=== PATIENT | male | born 1945 | race Caucasian/White ===

== ENCOUNTER 2016-11-03 06:26 | Day surgery (SDC) | payer MEDICARE, OTHER ==
[2016-11-03] MEDS ORDERED: Bupivacaine 0.25% 10 ML SDV ONE (06:58)
[2016-11-03] MEDS ORDERED: Lactated Ringers 1,000 ML IV SCH (07:00)
[2016-11-03] MEDS ORDERED: ceFAZolin 2 GM in Sodium Chloride 0.9% 50 ML IV ONE (07:30)
[2016-11-03] MEDS ORDERED: ceFAZolin 2 GM in Sodium Chloride 0.9% 100 ML IV ONE (07:30)
[2016-11-03] MEDS ORDERED: Propofol 200 MG/20 ML SDV ONE (07:36)
[2016-11-03] MEDS ORDERED: fentaNYL 100 MCG/2 ML SDV ONE (07:36)
[2016-11-03 09:05] VITALS: BP 120/64
--- NOTE | 2016-11-04 07:56 | OR ---
DATE OF PROCEDURE: 11/03/2016 PREOPERATIVE DIAGNOSIS: Right major trigger finger. POSTOPERATIVE DIAGNOSIS: Right major trigger finger. INTERVENTION: Release of A1 radha, right major finger. BLOOD LOSS: Minimal. COMPLICATIONS: No complications. INDICATIONS: Gui is a healthy 71 years old, who works a lot with his hand had a mid shaft ulnar fracture in June of his right forearm, did well, but he has been having some significant catching of his right middle finger. He had an injection and had complete relief at that time. However, the pain symptoms has reoccurred now, which is worse and triggering, he has to unlock it daily. Since he is quite active, we decided to proceed with surgery. I discussed with the patient the possible risks, benefits, alternatives, and complications of surgery. The nature of the procedure was explained. Possible complications include, but not exclusive to infection, phlebitis, nerve damage, vascular damage, possible re-triggering, persistent pain, stiffness, weakness, pulmonary emboli, stroke, transfusion , heart attack, medical complication, possible and I did explained the rehabilitation program. All questions were answered and I had informed consent. PROCEDURE IN DETAIL: The patient was taken to the OR. I did my markings in the right middle finger and he did receive antibiotics preop. The [employer] proceeded with some slight IV sedation, and tourniquet was applied to the right upper extremity in proximity. Sterile prep and dressing in the usual manner of the right hand. Time-out was taken to identify the correct surgical site. I did a local block Marcaine 0.25 plain subcutaneous tissue down to the A1 radha of his right middle finger. The arm was elevated, tourniquet was raised to 250 mmHg. A transverse incision was done at the A1 radha, at the base of his palmar, at the base of his right middle finger about a centimeter. The dissection was carried down to the radha making sure that I stay in the central portion to avoid any neurovascular bundle, this was very thick. He had slight fraying of the flexor tendon, which was slightly debrided with a scalpel. The radha was excised on either side, tendon was quite deconditioned rather in nature. After this was done, I had good gliding and the tendon without any triggering for the whole dressing was applied. Tourniquet was released. Blood loss was minimal. There was no complication. The patient tolerated well the operation. He was sent to recovery room in good condition. Russell Chance MD /[id number]
== END 2016-11-03 09:34 | disposition home or self-care (01) ==
LOC: JP.SDS 06:26
PROVIDERS: ATTEND Orthopaedic Surgery
PROC: 0LN70ZZ Release Right Hand Tendon, Open Approach (ICD-10-PCS; principal; 2016-11-03)
DX: M65.331 Trigger finger, right middle finger (principal); Z85.038 Personal history of other malignant neoplasm of large intestine; I25.10 Atherosclerotic heart disease of native coronary artery without angina pectoris; J45.909 Unspecified asthma, uncomplicated; I10 Essential (primary) hypertension; Z79.82 Long term (current) use of aspirin; Z79.899 Other long term (current) drug therapy; Z91.048 Other nonmedicinal substance allergy status; Z87.891 Personal history of nicotine dependence; K21.9 Gastro-esophageal reflux disease without esophagitis
CPT/HCPCS: 26055; J0690; J2704; J3010; J7050; J7120

== ENCOUNTER 2016-11-27 12:09 | Inpatient (IN) | payer MEDICARE, OTHER ==
[2016-11-27] MEDS ORDERED: Ondansetron 4 MG/2 ML SDV IVPUSH ONE (12:54)
[2016-11-27] MEDS ORDERED: HYDROmorphone 0.5 MG/0.5 ML Syringe IVPUSH ONE (12:58)
--- NOTE | 2016-11-27 12:58 | EDM.PDOC ---
ED HPI GI/ABDOMINAL - General Chief Complaint: Abdominal Pain Stated Complaint: FLU??FROM CLINIC Time Seen by Provider: 11/27/16 12:56 Source: Reports: Patient, Family History Limitations: Reports: No limitations - History of Present Illness INITIAL COMMENTS - FREE TEXT/NARRATIVE: pt has been constipated for the past 3 days. He has been vomiting. He has a past history of colon Ca about 7 years ago. Timing/Duration: Reports: Day(s):, Getting worse Location: other (accross lower abdoman.) Quality: Reports: cramping Severity: moderate Associated Symptoms: Reports: constipation, nausea/vomiting - Related Data Allergies/ADRs: Allergies Allergy/AdvReac Type Severity Reaction Status Date / Time atorvastatin Allergy Muscle Verified 11/27/16 12:31 Aches ciprofloxacin [From Cipro] Allergy Other Verified 11/27/16 12:31 Home Meds: Home Meds Aspirin [Adult Low Dose Aspirin EC] 81 mg PO DAILY 05/24/14 [History] Multivitamin [Multi-Vitamin Daily] 1 each PO DAILY 11/02/16 [History] Past Medical History HEENT History: Reports: Impaired vision Cardiovascular History: Reports: Heart murmur, Heart valve replacement Respiratory History: Reports: Asthma Genitourinary History: Reports: Other (see below) Other Genitourinary History: prostate infections "every now and then" Musculoskeletal History: Reports: Fracture, Other (see below) Other Musculoskeletal History: right arm fracture Psychiatric History: Reports: Depression Oncologic (Cancer) History: Reports: Other (see below) Other Oncologic History: rectal cancer - Infectious Disease History Infectious Disease History: Reports: Chicken pox, Measles, Mumps - Past Surgical History HEENT Surgical History: Reports: None Cardiovascular Surgical History: Reports: Valve replacement Respiratory Surgical History: Reports: None GI Surgical History: Reports: Colonoscopy, Other (see below) Other GI Surgeries/Procedures: history of rectal cancer, part of rectum removed Musculoskeletal Surgical History: Reports: Other (see below) Other Musculoskeletal Surgeries/Procedures:: trigger finger fixed r middle finger. Oncologic Surgical History: Reports: Other (see below) Other Oncologic Surgeries/Procedures: rectal colon surgery with colostomy. Reanastomosis aprox 6 years ago. Social & Family History - Family History Family Medical History: Noncontributory - Tobacco Use Smoking Status *Q: Never Smoker Used Tobacco, but Quit: No Second Hand Smoke Exposure: No - Caffeine Use Caffeine Use: Reports: Coffee, Soda - Recreational Drug Use Recreational Drug Use: No ED ROS GENERAL - Review of Systems Review Of Systems: See Below Constitutional: Reports: weakness, fatigue HEENT: Reports: No symptoms Respiratory: Reports: No Symptoms Cardiovascular: Reports: No symptoms Endocrine: Reports: no symptoms GI/Abdominal: Reports: Constipation, Decreased appetite, Nausea, Vomiting : Reports: no symptoms Musculoskeletal: Reports: no symptoms Skin: Reports: no symptoms ED EXAM, GI/ABD - Physical Exam Exam: See Below Text/Narrative:: pt arrived with lower abdomanl pain. He has been more constipated. He felt distended today and did not have a stool and did not pass gas. He was quite uncomfortable when he arrived. Exam Limited By: No limitations General Appearance: alert, anxious, moderate distress Eyes: bilateral: normal appearance, EOMI Ears: normal TMs Nose: normal inspection Throat/Mouth: Normal inspection Head: atraumatic Neck: normal inspection Respiratory/Chest: no respiratory distress Cardiovascular: regular rate, rhythm GI/Abdominal: tenderness, distention, other ( Pt ) (Male) Exam: Deferred Rectal (Males) Exam: Deferred Back Exam: normal inspection Extremities: normal inspection Course - Vital Signs Last Recorded V/S: Last Vital Signs Temp 37.6 C 11/29/16 02:39 Pulse 65 11/29/16 02:39 Resp 14 11/29/16 02:39 BP 127/64 11/29/16 02:39 Pulse Ox 93 L 11/29/16 02:39 - Orders/Labs/Meds Orders: Active Orders 24 hr Category Date Time Status Gastrointestinal Tube Mgmt [RC] ASDIRECTED Care 11/28/16 12:23 Active NPO Now [Nothing per Oral Now Diet] [DIET] Diet 11/28/16 Lunch Active Abdomen 2V AP Flat Upright [CR] DAILY Exams 11/29/16 05:00 Taken Abdomen 2V AP Flat Upright [CR] DAILY Exams 11/30/16 05:00 Ordered Abdomen 2V AP Flat Upright [CR] Routine Exams 11/28/16 11:30 Taken Aspirin [Halfprin] Med 11/28/16 09:00 Active 81 mg PO DAILY LORazepam [Ativan] Med 11/28/16 12:24 Active 0.5 - 1 mg IVPUSH Q4H PRN Lactated Ringers [Ringers, Lactated] 1,000 ml Med 11/28/16 11:30 Active IV ASDIRECTED Convert IV to Saline Lock [OM.PC] Routine Oth 11/28/16 09:44 Ordered NG [Nasogastric Orogastric Tube Insertion] [OM.PC] Ot 11/28/16 12:23 Ordered Routine Medication Orders Acetaminophen (Tylenol) 650 mg PO Q4H PRN PRN Reason: Pain (Mild 1-3)/fever Last Admin: 11/27/16 21:42 Dose: 650 mg Aspirin (Halfprin) 81 mg PO DAILY [facility] Last Admin: 11/28/16 08:04 Dose: 81 mg Hydromorphone HCl (Dilaudid) 0.5 - 1 mg IVPUSH Q2H PRN PRN Reason: Pain (severe 7-10) Last Admin: 11/29/16 06:12 Dose: 0.5 mg Admin: 11/29/16 06:06 Dose: 0.5 mg Admin: 11/28/16 19:28 Dose: 0.5 mg Admin: 11/28/16 15:59 Dose: 0.5 mg Admin: 11/28/16 12:27 Dose: 0.5 mg Admin: 11/28/16 09:09 Dose: 0.5 mg Admin: 11/27/16 21:01 Dose: 0.5 mg Admin: 11/27/16 16:56 Dose: 0.5 mg Lactated Ringer's (Ringers, Lactated) 1,000 mls @ 100 mls/hr IV ASDIRECTED [facility] Last Admin: 11/28/16 22:26 Dose: 100 mls/hr Infusion: 11/28/16 21:56 Dose: 100 mls/hr Admin: 11/28/16 11:56 Dose: 100 mls/hr Lorazepam (Ativan) 0.5 - 1 mg IVPUSH Q4H PRN PRN Reason: Nausea/Vomiting Ondansetron HCl (Zofran Odt) 4 mg PO Q6H PRN PRN Reason: Nausea able to take PO Last Admin: 11/28/16 11:15 Dose: 4 mg Ondansetron HCl (Zofran) 4 mg IV Q6H PRN PRN Reason: Nausea/Vomiting Pantoprazole Sodium (Protonix Iv) 40 mg IVPUSH Q24H [facility] Last Admin: 11/28/16 18:23 Dose: 40 mg Sodium Biphosphate/Sodium Phosphate (Fleet Enema) 133 ml RECTAL DAILY PRN PRN Reason: Constipation Sodium Chloride (Saline Flush) 10 ml FLUSH ONETIME PRN PRN Reason: per radiology protocol Last Admin: 11/27/16 13:35 Dose: 10 ml Labs: Laboratory Tests 11/27/16 11/27/16 11/27/16 Range/Units 12:44 12:44 12:44 WBC 10.6 (4.5-11.0) K/uL RBC 5.25 (4.30-5.90) M/uL Hgb 15.3 H (12.0-15.0) g/dL Hct 45.2 (40.0-54.0) % MCV 86 (80-98) fL MCH 29 (27-31) pg MCHC 34 (32-36) % Plt Count 232 (150-400) K/uL Neut % (Auto) 82 H (36-66) % Lymph % (Auto) 9 L (24-44) % Dickson % (Auto) 8 H (2-6) % Eos % (Auto) 1 L (2-4) % Baso % (Auto) 0 (0-1) % ESR 23 H (0-20) mm/hr Sodium 143 (140-148) mmol/L Potassium 4.4 (3.6-5.2) mmol/L Chloride 104 (100-108) mmol/L Carbon Dioxide 28 (21-32) mmol/L Anion Gap 10.7 (5.0-14.0) mmol/L BUN 19 H (7-18) mg/dL Creatinine 1.2 (0.8-1.3) mg/dL Est Cr Clr Drug Dosing 59.26 mL/min Estimated GFR (MDRD) 60 (>60) Glucose 111 H (74-106) mg/dL Calcium 8.8 (8.5-10.1) mg/dL Total Bilirubin 0.8 (0.2-1.0) mg/dL AST 20 (15-37) U/L ALT 26 (12-78) U/L Alkaline Phosphatase 86 (46-116) U/L Total Protein 7.6 (6.4-8.2) g/dL Albumin 4.0 (3.4-5.0) g/dL Globulin 3.6 H (2.3-3.5) g/dL Albumin/Globulin Ratio 1.1 L (1.2-2.2) Urine Color Urine Appearance Urine pH (4.5-8.0) Ur Specific Henrietta (1.008-1.030) Urine Protein (NEGATIVE) mg/dL Urine Glucose (UA) (NEGATIVE) mg/dL Urine Ketones (NEGATIVE) mg/dL Urine Occult Blood (NEGATIVE) Urine Nitrite (NEGAITVE) Urine Bilirubin (NEGATIVE) Urine Urobilinogen (NORMAL) mg/dL Ur Leukocyte Esterase (NEGATIVE) Urine RBC (0-5) Urine WBC (0-5) Ur Epithelial Cells Amorphous Sediment Urine Bacteria Urine Mucus 11/27/16 Range/Units 16:55 WBC (4.5-11.0) K/uL RBC (4.30-5.90) M/uL Hgb (12.0-15.0) g/dL Hct (40.0-54.0) % MCV (80-98) fL MCH (27-31) pg MCHC (32-36) % Plt Count (150-400) K/uL Neut % (Auto) (36-66) % Lymph % (Auto) (24-44) % Dickson % (Auto) (2-6) % Eos % (Auto) (2-4) % Baso % (Auto) (0-1) % ESR (0-20) mm/hr Sodium (140-148) mmol/L Potassium (3.6-5.2) mmol/L Chloride (100-108) mmol/L Carbon Dioxide (21-32) mmol/L Anion Gap (5.0-14.0) mmol/L BUN (7-18) mg/dL Creatinine (0.8-1.3) mg/dL Est Cr Clr Drug Dosing mL/min Estimated GFR (MDRD) (>60) Glucose (74-106) mg/dL Calcium (8.5-10.1) mg/dL Total Bilirubin (0.2-1.0) mg/dL AST (15-37) U/L ALT (12-78) U/L Alkaline Phosphatase (46-116) U/L Total Protein (6.4-8.2) g/dL Albumin (3.4-5.0) g/dL Globulin (2.3-3.5) g/dL Albumin/Globulin Ratio (1.2-2.2) Urine Color Yellow Urine Appearance Clear Urine pH 6.5 (4.5-8.0) Ur Specific Henrietta 1.015 (1.008-1.030) Urine Protein Negative (NEGATIVE) mg/dL Urine Glucose (UA) Normal (NEGATIVE) mg/dL Urine Ketones 15 H (NEGATIVE) mg/dL Urine Occult Blood Negative (NEGATIVE) Urine Nitrite Negative (NEGAITVE) Urine Bilirubin Negative (NEGATIVE) Urine Urobilinogen Normal (NORMAL) mg/dL Ur Leukocyte Esterase Negative (NEGATIVE) Urine RBC 0-5 (0-5) Urine WBC 0-5 (0-5) Ur Epithelial Cells Rare Amorphous Sediment Few Urine Bacteria Rare Urine Mucus Few Meds: Medications Generic Name Dose Route Start Last Admin Trade Name Freq PRN Reason Stop Dose Admin Acetaminophen 650 mg 11/27/16 16:07 11/27/16 21:42 Tylenol PO 650 mg Q4H PRN Administration Pain (Mild 1-3)/fever Aspirin 81 mg 11/28/16 09:00 11/28/16 08:04 Halfprin PO 81 mg DAILY ASHU Administration Hydromorphone HCl 0.5 - 1 mg 11/27/16 16:07 11/29/16 06:12 Dilaudid IVPUSH 0.5 mg Q2H PRN Administration Pain (severe 7-10) Lactated Ringer's 1,000 mls @ 100 mls/hr 11/28/16 11:30 11/28/16 22:26 Ringers, Lactated IV 100 mls/hr ASDIRECTED ASHU Administration Lorazepam 0.5 - 1 mg 11/28/16 12:24 Ativan IVPUSH Q4H PRN Nausea/Vomiting Ondansetron HCl 4 mg 11/27/16 16:07 11/28/16 11:15 Zofran Odt PO 4 mg Q6H PRN Administration Nausea able to take PO Ondansetron HCl 4 mg 11/27/16 16:07 Zofran IV Q6H PRN Nausea/Vomiting Pantoprazole Sodium 40 mg 11/28/16 18:00 11/28/16 18:23 Protonix Iv IVPUSH 40 mg Q24H ASHU Administration Sodium Biphosphate/Sodium Phosphate 133 ml 11/27/16 16:07 Fleet Enema RECTAL DAILY PRN Constipation Sodium Chloride 10 ml 11/27/16 13:34 11/27/16 13:35 Saline Flush FLUSH 10 ml ONETIME PRN Administration per radiology protocol Discontinued Medications Generic Name Dose Route Start Last Admin Trade Name Yadira PRN Reason Stop Dose Admin Bisacodyl 10 mg 11/27/16 16:45 11/27/16 18:02 Dulcolax RECTAL 11/27/16 16:46 10 mg ONETIME ONE Administration Hydromorphone HCl 0.5 mg 11/27/16 12:58 11/27/16 13:11 Dilaudid IVPUSH 11/27/16 12:59 0.5 mg ONETIME ONE Administration Sodium Chloride 1,000 mls @ 999 mls/hr 11/27/16 13:00 11/27/16 13:06 Normal Saline IV 999 mls/hr ASDIRECTED ASHU Administration Sodium Chloride 79 mls @ 3.5 mls/sec 11/27/16 13:45 11/27/16 13:36 Normal Saline IV 3.5 mls/sec ASDIRECTED ASHU Administration Sodium Chloride 1,000 mls @ 125 mls/hr 11/27/16 16:07 11/28/16 09:04 Normal Saline IV 125 mls/hr ASDIRECTED ASHU Administration Iopamidol 126 ml 11/27/16 13:34 11/27/16 13:36 Isovue-300 (61%) IV 11/28/16 13:35 126 ml . DIRECTED PRN Administration RADIOLOGY EXAM Ondansetron HCl 4 mg 11/27/16 12:54 11/27/16 13:10 Zofran IVPUSH 11/27/16 12:55 4 mg ONETIME ONE Administration Oxycodone HCl 5 mg 11/27/16 16:07 11/28/16 11:16 Oxycodone PO 5 mg Q4H PRN Administration Pain (moderate 4-6) - Re-Assessments/Exams Free Text/Narrative Re-Assessment/Exam: 11/27/16 14:11 cat scan of the abdoman showed a possible early small bowel obstruction in the mid small bowel. There is alot of stool in the colon. The sed rate was not high. Departure - Departure Time of Disposition: 14:26 Disposition: Admitted As Inpatient 65 Condition: fair Clinical Impression: Partial small bowel obstruction, Constipation
[2016-11-27] MEDS ORDERED: Sodium Chloride 0.9% 1,000 ML IV SCH (13:00)
[2016-11-27] MEDS ORDERED: Sodium Chloride 0.9% 10 ML Syringe FLUSH PRN (13:34)
[2016-11-27] MEDS ORDERED: Iopamidol 612 MG/ML 150 ML Bottle IV PRN (13:34)
--- NOTE | 2016-11-27 13:55 | CT ---
Abdomen Pelvis w Cont HISTORY: Abdominal pain. History of colon cancer. Dose: Total DLP 578. COMPARISON: CT scan of 07/29/2015. FINDINGS: Lung bases are clear. There is diffuse fatty infiltration of the liver. No focal liver les ions seen. Tiny gallstone in the gallbladder. The spleen, pancreas, adrenal glands and abdominal aor ta appear normal. There is moderate atrophy of the left kidney. No hydronephrosis bilaterally. There is some scattered stool throughout nondilated colon. Prior anastomosis at the distal sigmoid l evel. There is some dilated loops of small bowel in the left and right abdomen measuring up to 3.2 c m the ileum is normal in caliber. The duodenum and proximal jejunum is also normal in caliber. There is moderate prostate enlargement as well as bladder wall thickening stable from multiple prior studies. Impression: 1. Dilated small bowel loops appear to be mid to distal jejunal level. Developing small bowel obstru ction not excluded. The very distal small bowel or ileum is normal in caliber. 2. Diffuse fatty infiltration of liver. 3. Scattered stool throughout nondilated colon with prior anastomosis of the distal sigmoid colon.
--- NOTE | 2016-11-27 15:00 | PCM.HP ---
H&P History of Present Illness - General Date of Service: 11/27/16 Admit Problem/Dx: Admission Diagnosis/Problem Admission Diagnosis/Problem Abdominal pain Source of Information: Patient, Provider History Limitations: Reports: No limitations - History of Present Illness Initial Comments - Free Text/Narative: Gui presents to the emergency room today with 3-4 days of progressive lower abdominal pain. This is a moderate to moderately severe cramping lower abdominal pain. Worse when he is up and moving around and better when laying down flat. He hasn't taken anything at home to try and make it feel better. He has nausea for the past couple of days and has had a couple episodes of vomiting. He has had very little to eat or drink the past few days. He had one small hard bowel movement yesterday but none for the past 4 days otherwise. He does report that he has been more active and working harder than usual and may not have been keeping up on his fluid intake. He does admit that he has a tendency to become constipated his not extremely careful with diet and fluid. No fevers or chills. No complaints of chest pain or shortness of breath. No trouble passing urine. Workup in the emergency room has been reassuring based on laboratory studies and examination. CT scan showed possible developing small bowel obstruction. Patient has started to pass gas and is feeling a little better after a dose of pain medication. Lower Abdomen Pain Score (Numeric/FACES): 9 - Related Data Allergies/Adverse Reactions: Allergies Allergy/AdvReac Type Severity Reaction Status Date / Time atorvastatin Allergy Muscle Verified 11/27/16 12:31 Aches ciprofloxacin [From Cipro] Allergy Other Verified 11/27/16 12:31 Home Medications: Home Meds Aspirin [Adult Low Dose Aspirin EC] 81 mg PO DAILY 05/24/14 [History] Multivitamin [Multi-Vitamin Daily] 1 each PO DAILY 11/02/16 [History] Past Medical History HEENT History: Reports: Impaired vision Cardiovascular History: Reports: Heart murmur, Heart valve replacement Respiratory History: Reports: Asthma Genitourinary History: Reports: Other (see below) Other Genitourinary History: prostate infections "every now and then" Musculoskeletal History: Reports: Fracture, Other (see below) Other Musculoskeletal History: right arm fracture Psychiatric History: Reports: Depression Oncologic (Cancer) History: Reports: Other (see below) Other Oncologic History: rectal cancer - Infectious Disease History Infectious Disease History: Reports: Chicken pox, Measles, Mumps - Past Surgical History HEENT Surgical History: Reports: None Cardiovascular Surgical History: Reports: Valve replacement Respiratory Surgical History: Reports: None GI Surgical History: Reports: Colonoscopy, Other (see below) Other GI Surgeries/Procedures: history of rectal cancer, part of rectum removed Musculoskeletal Surgical History: Reports: Other (see below) Other Musculoskeletal Surgeries/Procedures:: trigger finger fixed r middle finger. Oncologic Surgical History: Reports: Other (see below) Other Oncologic Surgeries/Procedures: rectal colon surgery with colostomy. Reanastomosis aprox 6 years ago. Social & Family History - Family History Family Medical History: Noncontributory - Tobacco Use Smoking Status *Q: Never Smoker Used Tobacco, but Quit: No Second Hand Smoke Exposure: No - Caffeine Use Caffeine Use: Reports: Coffee, Soda - Alcohol Use Alcohol Use History: No - Recreational Drug Use Recreational Drug Use: No H&P Review of Systems - Review of Systems: Review Of Systems: See Below Free Text/Narrative: A complete 12 point review of systems was obtained. Pertinent positives and negatives are noted in the history of present illness. All other systems were reviewed and were negative except as noted. Exam - Exam Exam: See Below - Vital Signs Vital Signs: Last Vital Signs Temp 36.0 C 11/27/16 13:08 Pulse 53 L 11/27/16 13:08 Resp 18 11/27/16 13:08 BP 156/68 H 11/27/16 13:08 Pulse Ox 97 11/27/16 13:08 Weight: 84.368 kg - Exam Quality Assessment: No: supplemental oxygen, urinary catheter General: alert, oriented, cooperative. No: mild distress HEENT: Conjunctiva clear, Normal nasal septum. No: Mucosa moist & pink (dry), Scleral icterus Neck: supple, trachea midline. No: lymphadenopathy, thyromegaly Lungs: Clear to auscultation, Normal respiratory effort Cardiovascular: regular rate, regular rhythm Abdomen: normal bowel sounds, soft, tenderness ( mild suprapubic). No: distention Back Exam: normal inspection, full range of motion Extremities: normal inspection, normal pulses. No: cyanosis, edema Peripheral Pulses: 2+: dorsalis pedis (L), dorsalis pedis (R) Skin: warm, dry, intact Neuro Extensive - Mental Status: alert, oriented x3, nl response to commands Neuro Extensive - Motor, Sensory, Reflexes: CN II-XII intact. No: dysarthria, abnormal motor, tremor Psychiatric: alert, normal affect, normal mood - Patient Data Lab Results last 24 hrs: Laboratory Results - last 24 hr 11/27/16 11/27/16 11/27/16 Range/Units 12:44 12:44 12:44 WBC 10.6 (4.5-11.0) K/uL RBC 5.25 (4.30-5.90) M/uL Hgb 15.3 H (12.0-15.0) g/dL Hct 45.2 (40.0-54.0) % MCV 86 (80-98) fL MCH 29 (27-31) pg MCHC 34 (32-36) % Plt Count 232 (150-400) K/uL Neut % (Auto) 82 H (36-66) % Lymph % (Auto) 9 L (24-44) % Archuleta % (Auto) 8 H (2-6) % Eos % (Auto) 1 L (2-4) % Baso % (Auto) 0 (0-1) % ESR 23 H (0-20) mm/hr Sodium 143 (140-148) mmol/L Potassium 4.4 (3.6-5.2) mmol/L Chloride 104 (100-108) mmol/L Carbon Dioxide 28 (21-32) mmol/L Anion Gap 10.7 (5.0-14.0) mmol/L BUN 19 H (7-18) mg/dL Creatinine 1.2 (0.8-1.3) mg/dL Est Cr Clr Drug Dosing 59.26 mL/min Estimated GFR (MDRD) 60 (>60) Glucose 111 H (74-106) mg/dL Calcium 8.8 (8.5-10.1) mg/dL Total Bilirubin 0.8 (0.2-1.0) mg/dL AST 20 (15-37) U/L ALT 26 (12-78) U/L Alkaline Phosphatase 86 (46-116) U/L Total Protein 7.6 (6.4-8.2) g/dL Albumin 4.0 (3.4-5.0) g/dL Globulin 3.6 H (2.3-3.5) g/dL Albumin/Globulin Ratio 1.1 L (1.2-2.2) Result Diagrams: 11/27/16 12:44 11/27/16 12:44 Imaging Impressions last 24 hrs: CT of the abdomen and pelvis - images personally reviewed - there is evidence for moderate stool throughout the colon. Several loops of dilated small bowel in the mid abdomen that could represent developing obstruction. Very mild fluid in the pelvis. No evidence for recurrence of cancer. *Q Meaningful Use (ADM) - VTE *Q VTE Criteria *Q: - Stroke *Q Stroke Criteria *Q: - AMI *Q AMI Criteria *Q: - Problem List (1) Abdominal pain SNOMED Code(s): 04673833 ICD Code: R10.9 - UNSPECIFIED ABDOMINAL PAIN Status: Acute Current Visit : Yes Qualifiers: Abdominal location: left lower quadrant Qualified Code(s): R10.32 - Left lower quadrant pain (2) Partial small bowel obstruction SNOMED Code(s): 452945069 ICD Code: K56.69 - OTHER INTESTINAL OBSTRUCTION Status: Suspected Current Visit: Yes Problem List Initiated/Reviewed/Updated: Yes Orders Last 24hrs: Active Orders 24 hr Category Date Time Status Patient Status Manage Transfer [TRANSFER] Routine ADT 11/27/16 14:49 Ordered UA W/MICROSCOPIC [URIN] Urgent Lab 11/27/16 12:24 Uncollected Iopamidol [Isovue-300 (61%)] Med 11/27/16 13:34 Active 126 ml IV . DIRECTED PRN Sodium Chloride 0.9% [Normal Saline] 1,000 ml Med 11/27/16 13:00 Active IV ASDIRECTED Sodium Chloride 0.9% [Normal Saline] 79 ml Med 11/27/16 13:45 Active IV ASDIRECTED Sodium Chloride 0.9% [Saline Flush] Med 11/27/16 13:34 Active 10 ml FLUSH ONETIME PRN Resuscitation Status Routine Resus Stat 11/27/16 14:50 Ordered Medication Orders Sodium Chloride (Normal Saline) 1,000 mls @ 999 mls/hr IV ASDIRECTED [facility] Last Admin: 11/27/16 13:06 Dose: 999 mls/hr Sodium Chloride (Normal Saline) 79 mls @ 3.5 mls/sec IV ASDIRECTED [facility] Last Admin: 11/27/16 13:36 Dose: 3.5 mls/sec Iopamidol (Isovue-300 (61%)) 126 ml IV . DIRECTED PRN PRN Reason: RADIOLOGY EXAM Stop: 11/28/16 13:35 Last Admin: 11/27/16 13:36 Dose: 126 ml Sodium Chloride (Saline Flush) 10 ml FLUSH ONETIME PRN PRN Reason: per radiology protocol Last Admin: 11/27/16 13:35 Dose: 10 ml Assessment/Plan Comment:: Assessment and plan - Abdominal pain with possible developing small bowel obstruction - clinically improving with pain medications and he is starting to pass some gas. CT did not show definite obstruction but this is a possibility. He is not acutely ill and labs are reassuring. -Suppository -Enema if no results from suppository -Clear liquids for now, advance as tolerated -Pain control -Antinausea medication Maintenance issues - - DVT prophylaxis - ambulatory - GI prophylaxis - not indicated - Nutrition - clear liquids until bowels start moving - Posey catheter - not indicated CODE STATUS - full code Admission justification - patient will be referred observation status for bowel stimulation and repeat evaluation in the morning Disposition - anticipate discharge home tomorrow Primary care physician - Dr. Jose Angel Jacobs M.D.
[2016-11-27] MEDS ORDERED: Ondansetron 4 MG Tab.DIS PO PRN (16:07)
[2016-11-27] MEDS ORDERED: Sodium Phosphate,Monobasic/Sodium Phosphate,Dibasic Enema 133 ML Bottle RECTAL PRN (16:07)
[2016-11-27] MEDS ORDERED: Acetaminophen 325 MG Tab PO PRN (16:07)
[2016-11-27] MEDS ORDERED: Ondansetron 4 MG/2 ML SDV IV PRN (16:07)
[2016-11-27] MEDS ORDERED: Bisacodyl 10 MG Supp RECTAL ONE (16:45)
[2016-11-27] MEDS: HYDROmorphone 0.5 MG/0.5 ML Syringe IVPUSH PRN ×2 (16:56→21:01)
[2016-11-27] MEDS: Sodium Chloride 0.9% 1,000 ML IV SCH (18:02)
[2016-11-27] MEDS: oxyCODONE 5 MG Tab PO PRN (21:41)
[2016-11-28] MEDS: Sodium Chloride 0.9% 1,000 ML IV SCH ×2 (00:30→09:04)
[2016-11-28] MEDS: Aspirin 81 MG Tab.EC PO SCH (08:04)
[2016-11-28] MEDS: HYDROmorphone 0.5 MG/0.5 ML Syringe IVPUSH PRN ×4 (09:09→19:28)
[2016-11-28] MEDS: oxyCODONE 5 MG Tab PO PRN (11:16)
[2016-11-28] MEDS: Lactated Ringers 1,000 ML IV SCH ×2 (11:56→22:26)
[2016-11-28] MEDS ORDERED: LORazepam 2 MG/ML MDV IVPUSH PRN (12:24)
--- NOTE | 2016-11-28 12:28 | PCM.PN ---
- General Info Date of Service: 11/28/16 Functional Status: Reports: ambulating. Denies: pain controlled, tolerating diet - Review of Systems Gastrointestinal: Reports: Abdominal pain, Vomiting Systems Review Comment:: As the morning progressed he developed increasing abdominal pain with nausea and vomiting. x-ray of the abdomen after the episode of vomiting suggested small bowel obstruction with dilated loops of bowel air-fluid levels. He was made n.p.o.. An NG tube placed after some difficulty. He has not had any fevers. He has had some small bowel movements. - Patient Data Vitals - most recent: Last Vital Signs Temp 37.2 C 11/28/16 10:37 Pulse 65 11/28/16 10:37 Resp 18 11/28/16 10:37 BP 134/78 11/28/16 10:37 Pulse Ox 96 11/28/16 10:37 Weight - most recent: 77.201 kg I&O - last 24 hours: Intake & Output 11/27/16 11/28/16 11/28/16 22:59 06:59 14:59 Intake Total 1120 1570 1533 Output Total 190 75 Balance 930 1570 1458 Lab Results last 24 hrs: Laboratory Results - last 24 hr 11/27/16 Range/Units 16:55 Urine Color Yellow Urine Appearance Clear Urine pH 6.5 (4.5-8.0) Ur Specific [place] 1.015 (1.008-1.030) Urine Protein Negative (NEGATIVE) mg/dL Urine Glucose (UA) Normal (NEGATIVE) mg/dL Urine Ketones 15 H (NEGATIVE) mg/dL Urine Occult Blood Negative (NEGATIVE) Urine Nitrite Negative (NEGAITVE) Urine Bilirubin Negative (NEGATIVE) Urine Urobilinogen Normal (NORMAL) mg/dL Ur Leukocyte Esterase Negative (NEGATIVE) Urine RBC 0-5 (0-5) Urine WBC 0-5 (0-5) Ur Epithelial Cells Rare Amorphous Sediment Few Urine Bacteria Rare Urine Mucus Few Med Orders - Current: Current Medications Acetaminophen (Tylenol) 650 mg PO Q4H PRN PRN Reason: Pain (Mild 1-3)/fever Last Admin: 11/27/16 21:42 Dose: 650 mg Aspirin (Halfprin) 81 mg PO DAILY [facility] Last Admin: 11/28/16 08:04 Dose: 81 mg Hydromorphone HCl (Dilaudid) 0.5 - 1 mg IVPUSH Q2H PRN PRN Reason: Pain (severe 7-10) Last Admin: 11/28/16 09:09 Dose: 0.5 mg Lactated Ringer's (Ringers, Lactated) 1,000 mls @ 100 mls/hr IV ASDIRECTED [facility] Last Admin: 11/28/16 11:56 Dose: 100 mls/hr Lorazepam (Ativan) 0.5 - 1 mg IVPUSH Q4H PRN PRN Reason: Nausea/Vomiting Ondansetron HCl (Zofran Odt) 4 mg PO Q6H PRN PRN Reason: Nausea able to take PO Last Admin: 11/28/16 11:15 Dose: 4 mg Ondansetron HCl (Zofran) 4 mg IV Q6H PRN PRN Reason: Nausea/Vomiting Sodium Biphosphate/Sodium Phosphate (Fleet Enema) 133 ml RECTAL DAILY PRN PRN Reason: Constipation Sodium Chloride (Saline Flush) 10 ml FLUSH ONETIME PRN PRN Reason: per radiology protocol Last Admin: 11/27/16 13:35 Dose: 10 ml Discontinued Medications Bisacodyl (Dulcolax) 10 mg RECTAL ONETIME ONE Stop: 11/27/16 16:46 Last Admin: 11/27/16 18:02 Dose: 10 mg Hydromorphone HCl (Dilaudid) 0.5 mg IVPUSH ONETIME ONE Stop: 11/27/16 12:59 Last Admin: 11/27/16 13:11 Dose: 0.5 mg Sodium Chloride (Normal Saline) 1,000 mls @ 999 mls/hr IV ASDIRECTED [facility] Last Admin: 11/27/16 13:06 Dose: 999 mls/hr Sodium Chloride (Normal Saline) 79 mls @ 3.5 mls/sec IV ASDIRECTED [facility] Last Admin: 11/27/16 13:36 Dose: 3.5 mls/sec Sodium Chloride (Normal Saline) 1,000 mls @ 125 mls/hr IV ASDIRECTED [facility] Last Admin: 11/28/16 09:04 Dose: 125 mls/hr Iopamidol (Isovue-300 (61%)) 126 ml IV . DIRECTED PRN PRN Reason: RADIOLOGY EXAM Stop: 11/28/16 13:35 Last Admin: 11/27/16 13:36 Dose: 126 ml Ondansetron HCl (Zofran) 4 mg IVPUSH ONETIME ONE Stop: 11/27/16 12:55 Last Admin: 11/27/16 13:10 Dose: 4 mg Oxycodone HCl (Oxycodone) 5 mg PO Q4H PRN PRN Reason: Pain (moderate 4-6) Last Admin: 11/28/16 11:16 Dose: 5 mg - Exam Quality Assessment: No: supplemental oxygen General: alert, oriented, cooperative, mild distress Neck: supple Lungs: Normal respiratory effort Cardiovascular: Regular Rate, Regular Rhythm Abdomen: bowel sounds present, soft, no distension, tenderness Back Exam: full range of motion Extremities: no edema, no cyanosis Skin: warm, dry Psy/Mental Status: alert, normal affect - Problem List & Annotations (1) Abdominal pain SNOMED Code(s): 52926064 Code(s): R10.9 - UNSPECIFIED ABDOMINAL PAIN Status: Acute Current Visit: Yes Qualifiers: Abdominal location: left lower quadrant Qualified Code(s): R10.32 - Left lower quadrant pain (2) Partial small bowel obstruction SNOMED Code(s): 586949843 Code(s): K56.69 - OTHER INTESTINAL OBSTRUCTION Status: Suspected Current Visit: Yes - Problem List Review Problem List Initiated/Reviewed/Updated: Yes - My Orders Last 24 Hours: My Active Orders 11/27/16 14:50 Resuscitation Status Routine 11/27/16 16:07 Patient Status [ADT] Routine Intake and Output [RC] QSHIFT Notify Provider Vital Signs [RC] ASDIRECTED Oxygen Therapy [RC] PRN Up ad Teri [RC] ASDIRECTED VTE/DVT Education [RC] Per Unit Routine Vital Signs [RC] Q4H Acetaminophen [Tylenol] 650 mg PO Q4H PRN HYDROmorphone [Dilaudid] 0.5 - 1 mg IVPUSH Q2H PRN Na Phos,M-B/Na Phos,DI-B [Fleet Enema] 133 ml RECTAL DAILY PRN Ondansetron [Zofran ODT] 4 mg PO Q6H PRN Ondansetron [Zofran] 4 mg IV Q6H PRN 11/27/16 17:56 SCD [Sequential Compression Device] [OM.PC] Routine 11/28/16 09:44 Convert IV to Saline Lock [OM.PC] Routine 11/28/16 11:30 Abdomen 2V AP Flat Upright [CR] Routine Lactated Ringers [Ringers, Lactated] 1,000 ml IV ASDIRECTED 11/28/16 12:23 Gastrointestinal Tube Mgmt [RC] ASDIRECTED NG [Nasogastric Orogastric Tube Insertion] [OM.PC] Routine 11/28/16 12:24 LORazepam [Ativan] 0.5 - 1 mg IVPUSH Q4H PRN 11/28/16 12:26 Patient Status [ADT] Routine 11/28/16 Lunch NPO Now [Nothing per Oral Now Diet] [DIET] 11/29/16 05:00 Abdomen 2V AP Flat Upright [CR] DAILY BASIC METABOLIC PANEL,BMP [CHEM] Timed CBC W/O DIFF,HEMOGRAM [HEME] Timed (1) 11/30/16 05:00 Abdomen 2V AP Flat Upright [CR] DAILY - Plan Plan:: Assessment and plan - Small bowel obstruction - stable overnight but progressive pain and vomiting this morning. Repeat imaging suggest obstruction. Likely mechanical with probable adhesion related to previous surgeries. NG tube has been placed. -N.p.o. -NG tube to low intermittent suction -Pain control -Antinausea medication -Repeat imaging in the morning Maintenance issues - - DVT prophylaxis - ambulatory - GI prophylaxis - PPI - Nutrition - nothing by mouth Admission justification - patient will be transitioned to inpatient status with new diagnosis of small bowel obstruction. Disposition - anticipate discharge home after the hospital stay Jamie Jacobs M.D.
[2016-11-28] MEDS: Pantoprazole 40 MG Vial IVPUSH SCH (18:23)
[2016-11-29] MEDS: HYDROmorphone 0.5 MG/0.5 ML Syringe IVPUSH PRN ×4 (06:06→17:33)
[2016-11-29] MEDS: Lactated Ringers 1,000 ML IV SCH (08:39)
[2016-11-29] MEDS: Aspirin 81 MG Tab.EC PO SCH (10:49)
--- NOTE | 2016-11-29 10:50 | PCM.PN ---
- General Info Date of Service: 11/29/16 Functional Status: Reports: pain controlled, ambulating - Review of Systems General: Denies: Fever Gastrointestinal: Reports: Abdominal pain Systems Review Comment:: Some difficulty with increased pain overnight but this morning he is pain-free. No complaints of nausea. NG tube drainage has continued but has slowed down. Drainage now appears to be brownish to bile-colored fluid. He has not had any fevers. He is passing small quantities of gas but has not had a bowel movement since a small liquid one yesterday. No complaints of shortness of breath. He has been up and walking around. - Patient Data Vitals - most recent: Last Vital Signs Temp 37.0 C 11/29/16 07:16 Pulse 66 11/29/16 07:16 Resp 16 11/29/16 07:16 BP 117/63 11/29/16 07:16 Pulse Ox 93 L 11/29/16 07:16 Weight - most recent: 77.201 kg I&O - last 24 hours: Intake & Output 11/28/16 11/29/16 11/29/16 22:59 06:59 14:59 Intake Total 651 1167 Output Total 750 150 Balance -99 1017 Lab Results last 24 hrs: Laboratory Results - last 24 hr 11/29/16 11/29/16 Range/Units 05:39 05:39 WBC 7.5 (4.5-11.0) K/uL RBC 4.61 (4.30-5.90) M/uL Hgb 13.3 D (12.0-15.0) g/dL Hct 40.4 (40.0-54.0) % MCV 88 (80-98) fL MCH 29 (27-31) pg MCHC 33 (32-36) % Plt Count 172 (150-400) K/uL Sodium 140 (140-148) mmol/L Potassium 4.2 (3.6-5.2) mmol/L Chloride 105 (100-108) mmol/L Carbon Dioxide 25 (21-32) mmol/L Anion Gap 9.6 (5.0-14.0) mmol/L BUN 18 (7-18) mg/dL Creatinine 1.0 (0.8-1.3) mg/dL Est Cr Clr Drug Dosing 71.12 mL/min Estimated GFR (MDRD) > 60 (>60) Glucose 73 L (74-106) mg/dL Calcium 8.3 L (8.5-10.1) mg/dL Med Orders - Current: Current Medications Acetaminophen (Tylenol) 650 mg PO Q4H PRN PRN Reason: Pain (Mild 1-3)/fever Last Admin: 11/27/16 21:42 Dose: 650 mg Aspirin (Halfprin) 81 mg PO DAILY [facility] Last Admin: 11/28/16 08:04 Dose: 81 mg Hydromorphone HCl (Dilaudid) 0.5 - 1 mg IVPUSH Q2H PRN PRN Reason: Pain (severe 7-10) Last Admin: 11/29/16 06:12 Dose: 0.5 mg Dextrose/Lactated Ringer's (Dextrose 5%-Lactated Ringers) 1,000 mls @ 75 mls/ hr IV ASDIRECTED [facility] Lorazepam (Ativan) 0.5 - 1 mg IVPUSH Q4H PRN PRN Reason: Nausea/Vomiting Ondansetron HCl (Zofran Odt) 4 mg PO Q6H PRN PRN Reason: Nausea able to take PO Last Admin: 11/28/16 11:15 Dose: 4 mg Ondansetron HCl (Zofran) 4 mg IV Q6H PRN PRN Reason: Nausea/Vomiting Pantoprazole Sodium (Protonix Iv) 40 mg IVPUSH Q24H [facility] Last Admin: 11/28/16 18:23 Dose: 40 mg Sodium Biphosphate/Sodium Phosphate (Fleet Enema) 133 ml RECTAL DAILY PRN PRN Reason: Constipation Sodium Chloride (Saline Flush) 10 ml FLUSH ONETIME PRN PRN Reason: per radiology protocol Last Admin: 11/27/16 13:35 Dose: 10 ml Discontinued Medications Bisacodyl (Dulcolax) 10 mg RECTAL ONETIME ONE Stop: 11/27/16 16:46 Last Admin: 11/27/16 18:02 Dose: 10 mg Hydromorphone HCl (Dilaudid) 0.5 mg IVPUSH ONETIME ONE Stop: 11/27/16 12:59 Last Admin: 11/27/16 13:11 Dose: 0.5 mg Sodium Chloride (Normal Saline) 1,000 mls @ 999 mls/hr IV ASDIRECTED [facility] Last Admin: 11/27/16 13:06 Dose: 999 mls/hr Sodium Chloride (Normal Saline) 79 mls @ 3.5 mls/sec IV ASDIRECTED [facility] Last Admin: 11/27/16 13:36 Dose: 3.5 mls/sec Sodium Chloride (Normal Saline) 1,000 mls @ 125 mls/hr IV ASDIRECTED [facility] Last Admin: 11/28/16 09:04 Dose: 125 mls/hr Lactated Ringer's (Ringers, Lactated) 1,000 mls @ 100 mls/hr IV ASDIRECTED [facility] Last Admin: 11/29/16 08:39 Dose: 100 mls/hr Iopamidol (Isovue-300 (61%)) 126 ml IV . DIRECTED PRN PRN Reason: RADIOLOGY EXAM Stop: 11/28/16 13:35 Last Admin: 11/27/16 13:36 Dose: 126 ml Ondansetron HCl (Zofran) 4 mg IVPUSH ONETIME ONE Stop: 11/27/16 12:55 Last Admin: 11/27/16 13:10 Dose: 4 mg Oxycodone HCl (Oxycodone) 5 mg PO Q4H PRN PRN Reason: Pain (moderate 4-6) Last Admin: 11/28/16 11:16 Dose: 5 mg - Exam Quality Assessment: No: supplemental oxygen General: alert, oriented, cooperative, no acute distress HEENT: Other (NG tube in right nare) Lungs: Normal respiratory effort Cardiovascular: Regular Rate, Regular Rhythm Abdomen: bowel sounds present, soft, no tenderness, no distension Extremities: no edema, no cyanosis Skin: warm, dry Psy/Mental Status: alert, normal affect - Problem List & Annotations (1) Small bowel obstruction due to postoperative adhesions SNOMED Code(s): 49941183 Code(s): K56.5 - INTESTINAL ADHESIONS W OBST (POSTPROCEDURAL) (POSTINFECTION ) Status: Acute Current Visit: Yes (2) Abdominal pain SNOMED Code(s): 37290218 Code(s): R10.9 - UNSPECIFIED ABDOMINAL PAIN Status: Acute Current Visit: Yes Qualifiers: Abdominal location: left lower quadrant Qualified Code(s): R10.32 - Left lower quadrant pain - Problem List Review Problem List Initiated/Reviewed/Updated: Yes - My Orders Last 24 Hours: My Active Orders 11/28/16 18:00 Pantoprazole [ProTONIX IV] 40 mg IVPUSH Q24H 11/29/16 11:00 Dextrose 5%-Lactated Ringers @ 75 MLS/HR(1000ml) Dextrose 5%-Lactated Ringers 1 ,000 ml IV ASDIRECTED - Plan Plan:: Assessment and plan - Small bowel obstruction - increased pain overnight but doing much better this morning. NG tube continues to stump bile to stool colored fluid. He is essentially pain-free at this point. X-ray this morning does not look much better than yesterday morning. -N.p.o. -NG tube to low intermittent suction -Pain control -Antinausea medication -Repeat imaging in the morning -Consider surgical consultation if not improving Maintenance issues - - DVT prophylaxis - ambulatory - GI prophylaxis - PPI - Nutrition - nothing by mouth Admission justification - patient was be transitioned to inpatient status with new diagnosis of small bowel obstruction. Disposition - anticipate discharge home after the hospital stay Jamie Jacobs M.D.
[2016-11-29] MEDS ORDERED: Dextrose 5%-Lactated Ringers 1,000 ML IV SCH (11:00)
[2016-11-29] MEDS: Pantoprazole 40 MG Vial IVPUSH SCH (17:33)
[2016-11-30] MEDS: HYDROmorphone 0.5 MG/0.5 ML Syringe IVPUSH PRN (01:05)
[2016-11-30] MEDS ORDERED: Naloxone 0.4 MG/ML SDV IV PRN (07:50)
[2016-11-30] MEDS ORDERED: HYDROmorphone/Normal Saline 15 MG/30 ML PCA IV PRN (07:50)
--- NOTE | 2016-11-30 07:50 | PCM.CONS ---
H&P History of Present Illness - General Date of Service: 11/30/16 Admit Problem/Dx: Admission Diagnosis/Problem Admission Diagnosis/Problem Abdominal pain Source of Information: Patient History Limitations: Reports: Altered mental status (confusion) - History of Present Illness Onset of Symptoms: Reports: unknown/unsure Duration of Symptoms: Reports: Day(s):, Getting worse Location: Reports: abdomen Quality: Reports: Ache, Stabbing, Throbbing Severity: moderate Improves with: Reports: Medication Worsens with: Reports: None Context: Reports: sick contact Associated Symptoms: Reports: loss of appetite, nausea/vomiting Lower Abdomen Pain Score (Numeric/FACES): 6 - Related Data Allergies/Adverse Reactions: Allergies Allergy/AdvReac Type Severity Reaction Status Date / Time atorvastatin Allergy Muscle Verified 11/27/16 12:31 Aches ciprofloxacin [From Cipro] Allergy Other Verified 11/27/16 12:31 Home Medications: Home Meds Aspirin [Adult Low Dose Aspirin EC] 81 mg PO DAILY 05/24/14 [History] Multivitamin [Multi-Vitamin Daily] 1 each PO DAILY 11/02/16 [History] Past Medical History HEENT History: Reports: Impaired vision Cardiovascular History: Reports: Heart murmur, Heart valve replacement Respiratory History: Reports: Asthma Genitourinary History: Reports: Other (see below) Other Genitourinary History: prostate infections "every now and then" Musculoskeletal History: Reports: Fracture, Other (see below) Other Musculoskeletal History: right arm fracture Psychiatric History: Reports: Depression Oncologic (Cancer) History: Reports: Other (see below) Other Oncologic History: rectal cancer - Infectious Disease History Infectious Disease History: Reports: Chicken pox, Measles, Mumps - Past Surgical History HEENT Surgical History: Reports: None Cardiovascular Surgical History: Reports: Valve replacement Respiratory Surgical History: Reports: None GI Surgical History: Reports: Colonoscopy, Other (see below) Other GI Surgeries/Procedures: history of rectal cancer, part of rectum removed Musculoskeletal Surgical History: Reports: Other (see below) Other Musculoskeletal Surgeries/Procedures:: trigger finger fixed r middle finger. Oncologic Surgical History: Reports: Other (see below) Other Oncologic Surgeries/Procedures: rectal colon surgery with colostomy. Reanastomosis aprox 6 years ago. Social & Family History - Family History Family Medical History: Noncontributory - Tobacco Use Smoking Status *Q: Never Smoker Used Tobacco, but Quit: No Second Hand Smoke Exposure: No - Caffeine Use Caffeine Use: Reports: Coffee, Soda - Recreational Drug Use Recreational Drug Use: No H&P Review of Systems - Review of Systems: Review Of Systems: ROS reveals no pertinent complaints other than HPI. Exam - Exam Exam: See Below - Vital Signs Vital Signs: Last Vital Signs Temp 99.1 F 11/30/16 07:27 Pulse 71 11/30/16 07:27 Resp 16 11/30/16 07:27 BP 135/71 11/30/16 07:27 Pulse Ox 94 L 11/30/16 07:27 Weight: 170 lb 3.2 oz - Exam Quality Assessment: DVT prophylaxis, other (NG in place and has drained 50 mls the past 24 hours) General: mild distress HEENT: PERRLA Neck: supple, trachea midline Lungs: Clear to auscultation, Normal respiratory effort Cardiovascular: regular rate, regular rhythm Abdomen: tenderness (raghav umbilical area and bilateral lower quadrants ) Back Exam: normal inspection Extremities: normal inspection Neurological: cranial nerves intact Neuro Extensive - Mental Status: other (some confusion but orients easily ) Neuro Extensive - Motor, Sensory, Reflexes: CN II-XII intact, other (unsteady when he gets up) Psychiatric: normal mood, other (confusion) - Patient Data Result Diagrams: 11/29/16 05:39 11/29/16 05:39 Consult PN Assessment/Plan POD#: 0 Procedures: Procedures ASSAY OF CREATININE (12/20/15) CT ABD & PELV W/CONTRAST (07/29/15) EMERGENCY DEPT VISIT (05/24/14) EXTRACRANIAL BILAT STUDY (12/20/15) EXTREMITY STUDY (11/01/14) INCISE FINGER TENDON SHEATH (11/03/16) INSERT TEMP BLADDER CATH (05/24/14) MRI BRAIN STEM W/O & W/DYE (12/20/15) ORTHOTIC MGMT AND TRAINING (11/18/16) OT EVAL LOW COMPLEX 30 MIN (11/18/16) ROUTINE VENIPUNCTURE (12/20/15) THERAPEUTIC EXERCISES (11/18/16) US EXAM SCROTUM (12/28/14) US URINE CAPACITY MEASURE (05/24/14) Problem List Initiated/Reviewed/Updated: Yes My Orders last 24 hours: My Active Orders 11/30/16 07:03 Verify Patient Consent Obtain [RC] ASDIRECTED RT Acapella [RESPCARE] Routine 11/30/16 12:00 cefOXitin [Mefoxin] 2 gm Sodium Chloride 0.9% [Normal Saline] 50 ml IV ONETIME Plan: Assessment: Partial Small Bowel Obstruction Plan: Exploratory Laparotomy with Release of Partial Small Bowel Obstruction and lysis of adhesions and possible small bowel resection - General Anesthesia Case to Follow - 11/30/16 - Kaveh Garcia MD NPO Dilaudid NEW ORDER CLERK Cefoxitin 2 Gms IV cardiology consultants to OR Acapella to use 10 times every hour while awake. Kaveh Garcia MD explained possible risks and possible complications and patient wishes to proceed with surgical procedure. Thank you for this Consult Riddhi Nelson
[2016-11-30] MEDS: Aspirin 81 MG Tab.EC PO SCH (08:39)
--- NOTE | 2016-11-30 08:46 | CR ---
Abdomen 2V AP Flat Upright HISTORY: abdominal pain, vomiting FINDINGS: There are multiple dilated small bowel loops with air-fluid levels suspicious for small bowel obstru ction. Colon is nondistended. There is a moderately large amount of fecal material in the ascending and transverse colon. No soft tissue mass, organomegaly, or abnormal calcifications are seen. Small anterolateral aspiration noted along the lower thoracic and lumbar spine.. Lung bases are clear. Old median sternotomy changes are noted. Contrast is noted in the urinary bladder from yesterday's cont rasted CT study. IMPRESSION: Multiple dilated small bowel loops with air-fluid levels suspicious for small bowel obstruction. Mod erately large amount of fecal material is noted in the ascending and transverse colon.
--- NOTE | 2016-11-30 09:06 | CR ---
Abdomen 2V AP Flat Upright HISTORY: f/u obstruction FINDINGS: Dilated small bowel loops with air-fluid levels suspicious for partial small bowel obstruc tion are redemonstrated and appears similar to yesterday's exam. No free air is identified. Moderate fecal material is redemonstrated in the ascending and transverse colon. No mass organomegaly can be seen. Lung bases are clear. NG tube passes into the stomach. Old median sternotomy changes are note d. IMPRESSION: Possible small bowel obstruction. No significant interval change compared with yesterday 's exam. Tip of the NG tube in the stomach. Side-port is near the GE junction.
--- NOTE | 2016-11-30 09:49 | CR ---
Abdomen 2V AP Flat Upright HISTORY: f/u obstruction COMPARISON: 11/29/2016 FINDINGS: Dilated small bowel loops with air-fluid levels appear similar to yesterday's exam. Colon is nondistended. Moderate fecal material is redemonstrated in the ascending and transverse colon. No soft tissue mass, organomegaly, or abnormal calcifications are seen. Lung bases are clear. Tip of t he NG tube is in the stomach. The side-port is in the distal esophagus near the GE junction. IMPRESSION: Probable small bowel obstruction changes appear stable compared with yesterday's exam.
[2016-11-30] MEDS ORDERED: ePHEDrine 50 MG/ML SDV IV ONE (10:15)
[2016-11-30] MEDS ORDERED: Dexamethasone 4 MG/ML SDV ONE (11:19)
[2016-11-30] MEDS ORDERED: Ondansetron 4 MG/2 ML SDV ONE (11:19)
[2016-11-30] MEDS ORDERED: fentaNYL 250 MCG/5 ML SDV ONE ×3 (11:19→15:23)
[2016-11-30] MEDS ORDERED: Rocuronium 50 MG/5 ML Vial ONE (11:19)
[2016-11-30] MEDS ORDERED: Propofol 200 MG/20 ML SDV ONE (11:19)
[2016-11-30] MEDS ORDERED: Neostigmine Methylsulfate 1 MG/ML 5 ML Syringe ONE (11:19)
[2016-11-30] MEDS ORDERED: Succinylcholine/Normal Saline 200 MG/10 ML Syringe ONE (11:19)
[2016-11-30] MEDS ORDERED: Lactated Ringers 1,000 ML ONE (11:41)
[2016-11-30] MEDS ORDERED: cefOXitin 2 GM in Sodium Chloride 0.9% 50 ML IV ONE (12:00)
[2016-11-30] MEDS ORDERED: Meropenem 500 MG SDV ONE (12:18)
[2016-11-30] MEDS ORDERED: Labetalol 20 MG/4 ML Syringe IV PRN (16:35)
[2016-11-30] MEDS: Acetaminophen 1,000 MG in Premix Bag 1 BAG IV SCH ×2 (16:42→22:45)
[2016-11-30] MEDS ORDERED: Ondansetron 4 MG/2 ML SDV IV PRN (16:43)
[2016-11-30] MEDS: Dextrose 5%-Lactated Ringers 1,000 ML IV SCH ×2 (17:19→23:59)
[2016-11-30] MEDS: Pantoprazole 40 MG Vial IVPUSH SCH (17:19)
--- NOTE | 2016-11-30 18:51 | PCM.PN ---
- General Info Date of Service: 11/30/16 Functional Status: Reports: pain controlled, ambulating - Review of Systems General: Reports: No Symptoms Pulmonary: Reports: no symptoms Cardiovascular: Reports: No Symptoms Gastrointestinal: Reports: No symptoms Systems Review Comment:: This patient was admitted with small bowel obstruction, unfortunately he has failed conservative management. Seen and evaluated this morning by Dr. Garcia and then taken to the operating room for exploratory laparotomy. He is otherwise been stable with no significant temperature elevations and good vital signs. - Patient Data Vitals - most recent: Last Vital Signs Temp 98.8 F 11/30/16 17:58 Pulse 73 11/30/16 18:30 Resp 16 11/30/16 18:30 BP 115/59 L 11/30/16 18:30 Pulse Ox 95 11/30/16 18:01 Weight - most recent: 170 lb 3.2 oz I&O - last 24 hours: Intake & Output 11/30/16 11/30/16 11/30/16 06:59 14:59 22:59 Intake Total 925 718 Output Total 50 280 275 Balance 875 -280 443 Med Orders - Current: Current Medications Aspirin (Halfprin) 81 mg PO DAILY [facility] Last Admin: 11/30/16 08:39 Dose: Not Given Hydromorphone HCl (Dilaudid It Operations Analyst 15 Mg In Ns 30 Ml) 0 mg IV ASDIRECTED PRN; Protocol PRN Reason: PEG DRIVER PAIN CONTROL Last Admin: 11/30/16 08:02 Dose: 15 mg Acetaminophen 1,000 mg/ Premix 100 mls @ 400 mls/hr IV Q6H [facility] Stop: 12/01/16 11:14 Last Admin: 11/30/16 16:42 Dose: 400 mls/hr Dextrose/Lactated Ringer's (Dextrose 5%-Lactated Ringers) 1,000 mls @ 175 mls/ hr IV ASDIRECTED [facility] Last Admin: 11/30/16 17:19 Dose: 175 mls/hr Cefoxitin Sodium 2 gm/ Sodium (Chloride) 50 mls @ 100 mls/hr IV Q6H [facility] Labetalol HCl (Normodyne) 5 - 15 mg IV Q1H PRN PRN Reason: HIGH BP Stop: 11/30/16 19:00 Naloxone HCl (Narcan) 0.1 mg IV ASDIRECTED PRN PRN Reason: decreased respiratory rate Ondansetron HCl (Zofran) 4 mg IV Q4H PRN PRN Reason: Nausea/Vomiting Pantoprazole Sodium (Protonix Iv) 40 mg IVPUSH Q24H [facility] Last Admin: 11/30/16 17:19 Dose: 40 mg Discontinued Medications Acetaminophen (Tylenol) 650 mg PO Q4H PRN PRN Reason: Pain (Mild 1-3)/fever Last Admin: 11/27/16 21:42 Dose: 650 mg Bisacodyl (Dulcolax) 10 mg RECTAL ONETIME ONE Stop: 11/27/16 16:46 Last Admin: 11/27/16 18:02 Dose: 10 mg Dexamethasone (Dexamethasone) Confirm Administered Dose 4 mg .ROUTE .STK-MED ONE Stop: 11/30/16 11:20 Fentanyl (Sublimaze) Confirm Administered Dose 250 mcg .ROUTE .STK-MED ONE Stop: 11/30/16 11:20 Fentanyl (Sublimaze) Confirm Administered Dose 250 mcg .ROUTE .STK-MED ONE Stop: 11/30/16 11:28 Fentanyl (Sublimaze) Confirm Administered Dose 250 mcg .ROUTE .STK-MED ONE Stop: 11/30/16 15:24 Glycopyrrolate () Confirm Administered Dose 1 mg .ROUTE .STK-MED ONE Stop: 11/30/16 11:20 Hydromorphone HCl (Dilaudid) 0.5 mg IVPUSH ONETIME ONE Stop: 11/27/16 12:59 Last Admin: 11/27/16 13:11 Dose: 0.5 mg Hydromorphone HCl (Dilaudid) 0.5 - 1 mg IVPUSH Q2H PRN PRN Reason: Pain (severe 7-10) Last Admin: 11/30/16 01:05 Dose: 0.5 mg Sodium Chloride (Normal Saline) 1,000 mls @ 999 mls/hr IV ASDIRECTED [facility] Last Admin: 11/27/16 13:06 Dose: 999 mls/hr Sodium Chloride (Normal Saline) 79 mls @ 3.5 mls/sec IV ASDIRECTED [facility] Last Admin: 11/27/16 13:36 Dose: 3.5 mls/sec Sodium Chloride (Normal Saline) 1,000 mls @ 125 mls/hr IV ASDIRECTED [facility] Last Admin: 11/28/16 09:04 Dose: 125 mls/hr Lactated Ringer's (Ringers, Lactated) 1,000 mls @ 100 mls/hr IV ASDIRECTED [facility] Last Admin: 11/29/16 08:39 Dose: 100 mls/hr Dextrose/Lactated Ringer's (Dextrose 5%-Lactated Ringers) 1,000 mls @ 75 mls/ hr IV ASDIRECTED [facility] Last Admin: 11/29/16 13:53 Dose: 75 mls/hr Cefoxitin Sodium 2 gm/ Sodium (Chloride) 50 mls @ 100 mls/hr IV ONETIME ONE Stop: 11/30/16 12:29 Last Admin: 11/30/16 14:22 Dose: 100 mls/hr Lactated Ringer's (Ringers, Lactated) Confirm Administered Dose 1,000 mls @ as directed .ROUTE .STK-MED ONE Stop: 11/30/16 11:42 Iopamidol (Isovue-300 (61%)) 126 ml IV . DIRECTED PRN PRN Reason: RADIOLOGY EXAM Stop: 11/28/16 13:35 Last Admin: 11/27/16 13:36 Dose: 126 ml Lorazepam (Ativan) 0.5 - 1 mg IVPUSH Q4H PRN PRN Reason: Nausea/Vomiting Meropenem (Merrem) Confirm Administered Dose 500 mg .ROUTE .STK-MED ONE Stop: 11/30/16 12:19 Neostigmine Methylsulfate (Neostigmine) Confirm Administered Dose 5 mg .ROUTE .STK-MED ONE Stop: 11/30/16 11:20 Ondansetron HCl (Zofran) 4 mg IVPUSH ONETIME ONE Stop: 11/27/16 12:55 Last Admin: 11/27/16 13:10 Dose: 4 mg Ondansetron HCl (Zofran Odt) 4 mg PO Q6H PRN PRN Reason: Nausea able to take PO Last Admin: 11/28/16 11:15 Dose: 4 mg Ondansetron HCl (Zofran) 4 mg IV Q6H PRN PRN Reason: Nausea/Vomiting Ondansetron HCl (Zofran) Confirm Administered Dose 4 mg .ROUTE .STK-MED ONE Stop: 11/30/16 11:20 Oxycodone HCl (Oxycodone) 5 mg PO Q4H PRN PRN Reason: Pain (moderate 4-6) Last Admin: 11/28/16 11:16 Dose: 5 mg Propofol (Diprivan 20 Ml) Confirm Administered Dose 200 mg .ROUTE .STK-MED ONE Stop: 11/30/16 11:20 Rocuronium [place] (Zemuron) Confirm Administered Dose 50 mg .ROUTE .STK-MED ONE Stop: 11/30/16 11:20 Sodium Biphosphate/Sodium Phosphate (Fleet Enema) 133 ml RECTAL DAILY PRN PRN Reason: Constipation Sodium Chloride (Saline Flush) 10 ml FLUSH ONETIME PRN PRN Reason: per radiology protocol Last Admin: 11/27/16 13:35 Dose: 10 ml Succinylcholine Chloride (Succinylcholine In Ns Pf) Confirm Administered Dose 200 mg .ROUTE .STK-MED ONE Stop: 11/30/16 11:20 - Exam Lungs: Clear to auscultation, Normal respiratory effort Cardiovascular: Regular Rate, Regular Rhythm, No Murmurs Abdomen: soft, no tenderness, no distension, abnormal bowel sounds Extremities: no edema Skin: warm, dry, intact - Problem List Review Problem List Initiated/Reviewed/Updated: Yes - Plan Plan:: Assessment and plan - Small bowel obstruction - taken to surgery earlier today by Dr. Garcia, for exploratory laparotomy. -Ongoing postoperative care per Dr. Garcia Maintenance issues - - DVT prophylaxis - per surgical service - GI prophylaxis - PPI - Nutrition - nothing by mouth Admission justification - patient was be transitioned to inpatient status with new diagnosis of small bowel obstruction. Disposition - anticipate discharge home after the hospital stay This patient currently has no active medical problems which require ongoing followup. Hospitalist service will sign off and the patient at this time, if we can be of further assistance in medical management during his hospital stay, please reconsult.
[2016-11-30] MEDS: cefOXitin 2 GM in Sodium Chloride 0.9% 50 ML IV SCH (20:23)
[2016-12-01] MEDS: cefOXitin 2 GM in Sodium Chloride 0.9% 50 ML IV SCH ×4 (02:51→20:20)
[2016-12-01] MEDS: Acetaminophen 1,000 MG in Premix Bag 1 BAG IV SCH ×2 (04:34→11:12)
[2016-12-01] MEDS: Dextrose 5%-Lactated Ringers 1,000 ML IV SCH (06:31)
[2016-12-01] MEDS: Pantoprazole 40 MG Vial IVPUSH SCH (17:57)
[2016-12-01] MEDS ORDERED: Cyclobenzaprine 10 MG Tab PO PRN (19:42)
[2016-12-01] MEDS ORDERED: Acetaminophen 1,000 MG in Premix Bag 1 BAG IV ONE (22:48)
[2016-12-02] MEDS: cefOXitin 2 GM in Sodium Chloride 0.9% 50 ML IV SCH ×4 (01:48→19:32)
[2016-12-02] MEDS: Dextrose 5%-Lactated Ringers 1,000 ML IV SCH (03:57)
[2016-12-02] MEDS ORDERED: Meropenem 500 MG SDV ONE (06:47)
[2016-12-02] MEDS ORDERED: Lidocaine 1% with EPINEPHrine 1:100,000 50 ML MDV ONE (06:47)
[2016-12-02] MEDS ORDERED: Bupivacaine 0.5% 50 ML MDV ONE (06:47)
[2016-12-02] MEDS ORDERED: fentaNYL 100 MCG/2 ML SDV ONE (07:23)
[2016-12-02] MEDS ORDERED: Propofol 200 MG/20 ML SDV ONE (07:26)
--- NOTE | 2016-12-02 07:54 | PN ---
DATE OF SERVICE: 12/02/2016 SUBJECTIVE: Gui is postop day 2. He is n.p.o., going for delayed primary closure for open incision this morning. He had a temperature-max of 101.2. O2 saturations have been 80% to 84%. He is using his acapella. He is walking. Pain is controlled. OBJECTIVE: GENERAL: Gui Allen is a 71-year-old male. He is resting comfortably in bed. VITAL SIGNS: TPR is 99.7, 91, 20, blood pressure 125/74. HEENT: Negative. NECK: Supple. HEART: Regular rate and rhythm. LUNGS: Clear. ABDOMEN: Dressings dry and intact. Abdominal binder is on. Posey catheter is in place, and he has had 1875 mL of a light kg urine. IV amount is 2408 mL. ASSESSMENT: Exploratory laparotomy with release of small bowel obstruction, decompression of small bowel for stricturoplasty, and small bowel resection. Date of surgery 11/30/2016. PLAN: Orders to be written postoperatively. Riddhi Miller PA-C /[id number]
[2016-12-02] MEDS ORDERED: Furosemide 20 MG/2 ML VIAL IVPUSH ONE (08:00)
[2016-12-02] MEDS: Pantoprazole 40 MG Vial IVPUSH SCH (17:40)
[2016-12-03] MEDS: Dextrose 5%-Lactated Ringers 1,000 ML IV SCH ×2 (00:32→14:00)
[2016-12-03] MEDS: cefOXitin 2 GM in Sodium Chloride 0.9% 50 ML IV SCH ×4 (02:58→21:13)
--- NOTE | 2016-12-03 08:11 | PN ---
DATE OF SERVICE: 12/01/2016 The patient has been afebrile with stable vital signs, still mildly confused, but cooperative. Urine output is adequate, but not overly high and mid afternoon. NG output has been only 50 mL overnight. We will discontinue that and otherwise maximize activity and work with pulmonary toilet and plan to proceed with delayed primary closure tomorrow. Kaveh Garcia MD /[id number]
[2016-12-03] MEDS: Magnesium Sulfate/Water 2 GM in Premix Bag 1 BAG IV SCH ×3 (08:34→21:13)
[2016-12-03] MEDS: Bisacodyl 5 MG Tab PO SCH ×2 (09:08→21:13)
[2016-12-03] MEDS: Docusate Sodium 100 MG Cap PO SCH ×2 (09:08→21:13)
--- NOTE | 2016-12-03 09:35 | PN ---
DATE OF SERVICE: 12/03/2016 SUBJECTIVE: Gui has not had a bowel movement yet. He remains to be somewhat confused. Vital signs have been stable. His activity has been good. He is using his IS. Labs today revealed a potassium of 3.4, phosphorus 2.7, magnesium 1.3. OBJECTIVE: GENERAL: Gui Allen is a 71-year-old male. He is awake, somewhat confused. VITAL SIGNS: TPR is 99.3, 97, 12. Blood pressure is 153/97. HEENT: Negative. NECK: Supple. HEART: Regular rate and rhythm. LUNGS: Clear to auscultation in all four house. ABDOMEN: Dressings dry and intact. Abdominal binder is on. EXTREMITIES: Without peripheral edema. ASSESSMENT: Exploratory laparotomy with release of small bowel obstruction and decompression of small bowel stricturoplasty for stricturoplasty and small bowel resection. Date of surgery 11/30/2016. PLAN: 1. K-Phos 40 mEq IV today. 2. Magnesium 2 g q.6 hours IV x72 hours. 3. Dulcolax 10 mg tablets 2 b.i.d. p.o., may discontinue after bowel movement. 4. Colace 100 mg b.i.d. 5. Good pulmonary toilet encouraged. 6. We will evaluate p.r.n. or in a.m. Riddhi Miller PA-C /[id number]
[2016-12-03] MEDS ORDERED: Magnesium Sulfate/Water 2 GM in Premix Bag 1 BAG IV SCH (10:00)
[2016-12-03] MEDS ORDERED: Potassium Phosphates 20 MMOLE in Sodium Chloride 0.9% 250 ML IV ONE (10:00)
[2016-12-03] MEDS ORDERED: Potassium Phosphates 25 MMOLE in Sodium Chloride 0.9% 250 ML IV ONE (13:00)
[2016-12-03] MEDS: Pantoprazole 40 MG Vial IVPUSH SCH (17:38)
[2016-12-04] MEDS: cefOXitin 2 GM in Sodium Chloride 0.9% 50 ML IV SCH ×4 (02:29→20:07)
[2016-12-04] MEDS: Magnesium Sulfate/Water 2 GM in Premix Bag 1 BAG IV SCH ×4 (03:44→20:47)
[2016-12-04] MEDS: Bisacodyl 5 MG Tab PO SCH ×2 (08:54→20:07)
[2016-12-04] MEDS: Docusate Sodium 100 MG Cap PO SCH ×2 (08:54→20:07)
[2016-12-04] MEDS: Dextrose 5%-Lactated Ringers 1,000 ML IV SCH ×2 (08:58→19:10)
--- NOTE | 2016-12-04 10:28 | PN ---
DATE OF SERVICE: 12/04/2016 SUBJECTIVE: Gui is up ambulating. His vital signs have been stable. He is passing flatus, but has not had a bowel movement. He is hungry. Voiding without difficulty. MIS drains have put out 25 mL in the past 24 hours. OBJECTIVE: GENERAL: Gui Allen is a 71-year-old male. Height 5 feet 11 inches and weight is 170 pounds. VITAL SIGNS: TPR is 98.2, 78, 16, blood pressure 150/100. HEENT: Negative. NECK: Supple. HEART: Regular rate and rhythm. LUNGS: Clear. ABDOMEN: [place] in place. Abdominal binder is on. EXTREMITIES: Without peripheral edema. ASSESSMENT: Exploratory laparotomy with release of small bowel obstruction, decompression of small bowel for stricturoplasty on 11/30/2016. PLAN: Full liquid diet, call if he does have a bowel movement, and will advance his diet. We will evaluate p.r.n. or in a.m. Riddhi Miller PA-C /[id number]
[2016-12-04] MEDS: Pantoprazole 40 MG Vial IVPUSH SCH (19:10)
[2016-12-05] MEDS ORDERED: Acetaminophen/oxyCODONE 325-5 MG Tab PO PRN (00:24)
[2016-12-05] MEDS: Docusate Sodium 100 MG Cap PO SCH (08:52)
[2016-12-05 11:00] VITALS: BP 112/62
--- NOTE | 2016-12-07 08:45 | DISCH ---
FINAL DIAGNOSES: 1. Adhesive small bowel obstruction with thinned-out segment of small bowel adherent within the pelvis, marked distention of small bowel proximal to obstruction, and possible focal small bowel stricture. 2. A frondlike peritoneal lesion. SECONDARY DIAGNOSES: 1. History of rectal carcinoma with no known recurrence. 2. Postoperative confusion. 3. Retention of urine. OPERATIVE PROCEDURES: 1. This was done on 11/30/2016, exploratory laparotomy with:. a. Small bowel resection. b. Small bowel stricturoplasty. c. Enterotomy for decompression of small bowel. d. Excision of frondlike peritoneal lesion. 2. The second operation was on 12/02/2016, delayed primary closure of abdominal incision. HOSPITAL COURSE: This 71-year-old presenting with a picture of small bowel obstruction. See admission H and P. Treated with an NG tube and subsequently had no significant improvement and underwent exploratory laparotomy with the above-noted findings. Postoperatively, he had no significant problems other than some urinary retention at one point and mild amount of postoperative confusion, which is now cleared. He is presently going to be discharged home. He will continue his usual aspirin and multivitamin regimen, and for pain, he will receive Percocet 5/325 mg 1 to 2 tabs q.4 hours p.r.n. pain, #40. He will be following up with Dr. Garcia in [facility] on 12/10/2016.
--- NOTE | 2016-12-07 10:41 | OR ---
DATE OF PROCEDURE: 11/30/2016 PREOPERATIVE DIAGNOSIS: Small bowel obstruction. POSTOPERATIVE DIAGNOSES: 1. Adhesive small bowel obstruction. 2. Radiated small bowel adherent within the pelvis. 3. Marked dilation of small bowel proximal to obstruction. 4. Focal small bowel stricture. 5. Frondlike peritoneal lesion overlying small bowel mesentery. OPERATIVE PROCEDURE: Exploratory laparotomy with: 1. Small bowel resection (32255). 2. Small bowel stricturoplasty (12785). 3. Enterotomy for decompression of small bowel (32481). 4. Excision of frondlike peritoneal region overlying small bowel mesentery (65777). ANESTHESIA: General. MARKETING BUDGET ANALYST: Riddhi Miller PA-C. INDICATION FOR PROCEDURE: The patient admitted over the weekend with a picture of small bowel obstruction. After 24 hours of nasogastric suction, the small bowel is actually somewhat increased in size, despite the NG tube apparently functioning reasonably well and in good position on abdominal x-ray. Given this, the plan is to proceed with an open laparotomy with lysis of adhesions and small bowel resection as indicated. The patient is status post previous resection of rectal cancer with post radiotherapy without known recurrence. The potential risks of procedure, including bleeding and infection, leaks from various GI tract closures, recurrence of the adhesion problem, as well as possibility of cardiopulmonary, septic, or hemorrhagic complications leading to were discussed, and the patient wishes to proceed. DETAILS OF PROCEDURE: The patient was taken to the operating room and placed in a supine position. After general endotracheal anesthesia was induced, a Posey catheter was inserted and the abdomen was prepped and draped. The patient had preexisting nasogastric tube in place. A midline incision was made and carried down through the skin and subcutaneous tissue. This eventually extended from a handsbreadth above the pubis to a handsbreadth below the xiphoid. This was carried through the subcutaneous tissue, fascia, and into the peritoneal cavity. Fortunately, there were little adhesions to the anterior abdominal wall. The patient was noted to have marked distention of the small bowel. As one traced the small bowel downward, there was some thinned out bowel adherent in the pelvis. This had a quite radiated appearance to it, consistent with patient's previous perioperative radiotherapy for rectal cancer. As this was mobilized upward, the point of adhesion was identified. This was lysed and, at that point, the bowel examined. The patient was noted to have a fairly dense stricture at the point of obstruction and marked dilation of the bowel above that. Additionally, the thinned out small bowel had a somewhat tenuous appearance to it, after dissection out of the pelvis, in terms of blood supply, as well as very thinned radiated wall, and this was felt best to be resected. At this point, the segment of bowel to be resected was divided proximally and distally with REJI kirill, as was the underlying mesentery, and that specimen of bowel delivered from the field. The proximal end of the bowel was then opened at the staple line, and a [place] sump tube placed. The marked distention of the small bowel was then decompressed by milking the contents downward, which were then evacuated via the [place] sump tube, thus decompressing the small bowel. Roughly 1.5 L of fluid and air were removed from the proximal small bowel. At this point, further inspection revealed a linear more or less frondlike soft mass over the peritoneum of the small bowel mesentery. This was excised and sent for histologic evaluation to make sure this is not somehow related to any recurrence of the rectal cancer, although it was fairly soft in appearance. This measured 3 cm in maximal dimension. GI tract continuity was then re-established with a [id number] enteroenterostomy between the divided ends of the small bowel. This was done initially with two firings of the REJI stanley loads and then the common opening closed transversely with purple loads. The angles were anastomosed, and the mesenteric defect was approximated with some 0 Ethibond stitch. The area where the adhesion had been across small bowel was persistently narrowed. Given this and the fact that there likely may be some mucosal injury leading to a functional stricture in that area, it was felt that stricturoplasty would be warranted. At the point of narrowing at the anastomotic border, the bowel was opened, and using a REJI stanley load, one limb was placed into each of the limbs of the bowel as they were flipped over on itself, fired, thus creating a common opening. The point where the stapler was entered was closed off with a purple load. The angles of anastomosis were reinforced with some 3-0 Vicryl stitch. There was no mesenteric defect in this case. At this point, no further problems were noted. The abdomen was irrigated with meropenem- containing saline solution. A Desmond-Cali drain was placed through a stab wound and taken down across the area of the anastomosis into the pelvis. The midline fascia was then approximated with a #2 Vicryl stitch. The skin and subcutaneous tissue were felt to be at high risk for wound infection, given some inherent contamination related to the open bowel and some edema and radiated state of the lower abdominal wall. Given this, the skin and subcutaneous tissue were packed open for a planned delayed primary closure in 48 hours. The patient was taken to the recovery room in satisfactory condition. Physician assistant fitness manager, Riddhi Miller, played an essential role in assisting in this case, helping to position the patient, retract structures as indicated, as well as suturing and cutting sutures when indicated. Her presence improved the patient's safety and decreased the operative time. Kaveh Garcia MD /[id number]
--- NOTE | 2016-12-11 08:53 | OR ---
DATE OF PROCEDURE: 12/02/2016 PREOPERATIVE DIAGNOSIS: Open abdominal incision. POSTOPERATIVE DIAGNOSIS: Open abdominal incision. PROCEDURE: Delayed primary closure of open abdominal incision. ANESTHESIA: Local plus IV sedation. INDICATION FOR PROCEDURE: A 71-year-old male presenting with a small bowel obstruction which there was marked distention of resected small bowel. After completion of the surgery on 11/30, it was felt that the skin and subcutaneous tissue would be at high risk for infection, they were closed and the planned delayed primary closure was scheduled today. Potential risks of procedure including bleeding and infection were reviewed, and the patient wishes to proceed. DETAILS OF PROCEDURE: The patient was taken to the operating room and placed in a supine position. IV sedation was administered after which the abdominal dressing was then taken down. The wound was inspected and found to be clean. It was then prepped and draped and anesthetized with 1% lidocaine mixed with Marcaine and then irrigated with meropenem- containing saline solution. A 10-Nepali round Desmond-Cali drain was placed into the depths in the inferior aspect of the incision and draped across the length of incision. The incision was then closed with 2 layers of 3-0 and 4-0 Vicryl stitch deep and then kirill for the skin. Drain was affixed to the skin with a 4-0 Vicryl stitch, and the patient taken to the recovery room in satisfactory condition. There were no evident complications. Kaveh Garcia MD /[id number]
== END 2016-12-05 13:15 | disposition home or self-care (01) | DRG 331 ==
LOC: JP.ED 12:09 → JP.2SS 14:49 → OBSVTOIN 11-28 12:26 → JP.MS 12-01 15:30
PROVIDERS: ADMIT Internal Medicine; ATTEND Surgery
PROC: 0DBV0ZX Excision of Mesentery, Open Approach, Diagnostic (ICD-10-PCS; principal; 2016-11-30)
PROC: 0DN80ZZ Release Small Intestine, Open Approach (ICD-10-PCS; principal; 2016-11-30)
PROC: 0D980ZZ Drainage of Small Intestine, Open Approach (ICD-10-PCS; principal; 2016-11-30)
PROC: 0DB80ZZ Excision of Small Intestine, Open Approach (ICD-10-PCS; principal; 2016-11-30)
PROC: 0WQF0ZZ Repair Abdominal Wall, Open Approach (ICD-10-PCS; 2016-12-02)
DX: K56.5 Intestinal adhesions [bands] with obstruction (postinfection) (principal); K56.69 Other intestinal obstruction; R10.9 Unspecified abdominal pain; K59.00 Constipation, unspecified; K59.8 Other specified functional intestinal disorders; Z92.3 Personal history of irradiation; Z85.048 Personal history of other malignant neoplasm of rectum, rectosigmoid junction, and anus; Z79.52 Long term (current) use of systemic steroids; H54.7 Unspecified visual loss; Z79.82 Long term (current) use of aspirin; Z88.1 Allergy status to other antibiotic agents; Z88.8 Allergy status to other drugs, medicaments and biological substances; R41.0 Disorientation, unspecified; R33.9 Retention of urine, unspecified
CPT/HCPCS: 36415; 74020 ×2; 74177 ×2; 80053; 81001; 85025; 85651; 96361; 96374; 96375; 99284; 99285; A9270 ×6; J1170 ×4; J2405; J7030; J7040 ×4; J7050; J7120; 80048; 83735; 83880; 84100; 85027; 88305; 88307; 88342; 94667; 94762; 96376; 99220; C9113; G0378; J0131; J0694; J1100; J1940; J2185; J2704; J3010; J3475; J3490; J7042

== ENCOUNTER 2017-12-10 06:51 | Day surgery (SDC) | payer MEDICARE, OTHER ==
[2017-12-10] MEDS ORDERED: Lactated Ringers 1,000 ML IV SCH (07:00)
[2017-12-10] MEDS ORDERED: fentaNYL 100 MCG/2 ML SDV ONE (07:23)
[2017-12-10] MEDS ORDERED: Midazolam 1 MG/ML 2 ML SDV ONE (07:23)
[2017-12-10] MEDS ORDERED: Propofol 200 MG/20 ML SDV ONE (07:23)
[2017-12-10 09:29] VITALS: BP 110/56
--- NOTE | 2017-12-10 11:26 | OR ---
DATE OF PROCEDURE: 12/10/2017 PROCEDURE: Colonoscopy. FINDINGS: 1. Diverticulosis, mild. 2. No polyps or evidence of recurrence of malignancy. COMPLICATIONS: None. BUILDINGS AND GROUNDS SUPERVISOR: None. PREOPERATIVE DIAGNOSIS: History of colon cancer. POSTOPERATIVE DIAGNOSIS: History of colon cancer. RISKS: Risks, benefits, alternatives, and limitations including, but not limited to infection, bleeding, and perforation were explained to the patient who wished to proceed. PROCEDURE IN DETAIL: The patient was placed in left lateral decubitus position. Digital rectal exam was performed without abnormality. The scope was introduced, advanced atraumatically. No evidence of old or new blood. No masses. No polyps. The patient had diverticulosis, which would be described as mild and limited to the sigmoid colon only. The patient tolerated the procedure well. Maxx Vasquez MD /[id number]
== END 2017-12-10 09:47 | disposition home or self-care (01) ==
LOC: JP.SDS 06:51
PROVIDERS: ATTEND Surgery
DX: K57.30 Diverticulosis of large intestine without perforation or abscess without bleeding (principal); J45.909 Unspecified asthma, uncomplicated; E78.5 Hyperlipidemia, unspecified; Z85.048 Personal history of other malignant neoplasm of rectum, rectosigmoid junction, and anus; Z88.8 Allergy status to other drugs, medicaments and biological substances; Z88.1 Allergy status to other antibiotic agents
CPT/HCPCS: G0105; J2250; J2704; J3010

== ENCOUNTER 2019-12-25 06:14 | Day surgery (SDC) | payer MEDICARE, OTHER ==
[2019-12-25] MEDS ORDERED: Bupivacaine 0.5% 50 ML MDV ONE (06:31)
[2019-12-25] MEDS ORDERED: Lidocaine 1% with EPINEPHrine 1:100,000 50 ML MDV ONE (06:31)
[2019-12-25] MEDS ORDERED: Acetaminophen 500 MG Tab PO ONE (06:44)
[2019-12-25] MEDS ORDERED: ceFAZolin 2 GM in Premix Bag 1 BAG IV ONE (06:44)
[2019-12-25] MEDS ORDERED: Dextrose 5%-Lactated Ringers 1,000 ML IV SCH (06:45)
[2019-12-25] MEDS ORDERED: fentaNYL 100 MCG/2 ML SDV ONE (07:10)
[2019-12-25] MEDS ORDERED: Propofol 200 MG/20 ML SDV ONE ×2 (07:10→08:39)
[2019-12-25] MEDS ORDERED: Midazolam 1 MG/ML 2 ML SDV ONE (07:11)
[2019-12-25] MEDS ORDERED: Ropivacaine 40 ML, dexAMETHasone 8 MG, EPINEPHrine 0.4 MG, Sodium Chloride 0.9% 37.6 ML NERVRT SCH ×4 (07:30)
[2019-12-25] MEDS ORDERED: Ketorolac 60 MG/2 ML SDV ONE (08:29)
[2019-12-25 10:23] VITALS: BP 127/76; PULSE 51
--- NOTE | 2020-01-03 16:00 | OR ---
DATE OF PROCEDURE: 12/25/2019 SURGEON: Kaveh Garcia MD PREOPERATIVE DIAGNOSIS: Right inguinal hernia. POSTOPERATIVE DIAGNOSES: 1. Incarcerated right inguinal hernia. 2. Right ilioinguinal nerve and iliohypogastric nerves at risk for scar entrapment. OPERATIVE PROCEDURES: Right inguinal exploration with, 1. Repair of incarcerated right inguinal hernia with mesh (15361). 2. Excision of portion of right ilioinguinal nerve (82716). 3. Excision of portion of right iliohypogastric nerve (68841). ANESTHESIA: Local plus IV sedation. INDICATION FOR PROCEDURE: This is a 74-year-old presenting with increasingly symptomatic right inguinal hernia. After preoperative evaluation and discussion, he wished to proceed with a repair of the hernia with mesh plug technique. Potential risks of the procedure including bleeding, infection, injury to underlying viscera, problems with the mesh becoming infected or the hernia recurring were reviewed, to limit possibility of chronic pain that we often divide one or two of the nerves in the area of the hernia to avoid those being entrapped and scarred was also reviewed with the patient, and he wishes to proceed. DETAILS OF PROCEDURE: The patient was taken to the operating room and placed in a supine position. IV sedation was administered, after which, the right inguinal area was anesthetized with 1% lidocaine mixed with Marcaine. A standard right inguinal incision was made and carried down through the skin and subcutaneous tissue, and through the external oblique aponeurosis, subaponeurotic flaps were then raised superiorly and inferiorly. The cord structures were then mobilized upward. The patient was noted to have a fairly substantial indirect hernia. This appeared to contain some small bowel within it. The hernia sac was dissected free from the cord structures after division of the cremasteric muscles. At that point, upon opening the sac, some adhesions between the sac and small bowel were divided and small bowel was then able to be reduced back in the peritoneal cavity. Site was then closed off with a pursestring stitch of 3-0 Vicryl stitch and dissected down to the base of the internal ring, where it was easily turned inward. An extra-large mesh plug was then selected and placed into the internal ring. This was secured to the underside of the conjoint tendon medially, superiorly, and laterally with horizontal mattress sutures of 0 Vicryl stitch. The inferior aspect of the mesh was then affixed to the shelving portion of the inguinal ligament with the same suture. At that point, the repair appeared to be satisfactory. Both the ilioinguinal nerve and iliohypogastric nerves were in the plane where the flat portion of mesh plug system would be placed. Given this, portion of these were excised down to the level of the far lateral aspect of the incision. The flat portion of the mesh plug system was placed across the inguinal floor and sutured lateral to the cord structures with 4-0 Vicryl stitch and over this, the external oblique aponeurosis was approximated with some 4-0 Vicryl stitch as was the Marshal's fascia, and the skin closed with 4-0 Vicryl subcuticular stitch. Dressing was applied. The patient was taken to the recovery room in satisfactory condition. There were no evident complications. Physician exceptional children teacher assistant, Riddhi Miller, played an essential role in assisting in this case; helping to position the patient, retract structures as needed, as well as suturing and cutting sutures when indicated. Her presence improved patient safety and decreased the operative time. Kaveh Garcia MD /[id number]
== END 2019-12-25 11:14 | disposition home or self-care (01) ==
LOC: JP.SDS 06:14
PROVIDERS: ATTEND Surgery
DX: K40.30 Unilateral inguinal hernia, with obstruction, without gangrene, not specified as recurrent (principal); G57.81 Other specified mononeuropathies of right lower limb; K66.0 Peritoneal adhesions (postprocedural) (postinfection); F17.200 Nicotine dependence, unspecified, uncomplicated; J45.909 Unspecified asthma, uncomplicated; I25.10 Atherosclerotic heart disease of native coronary artery without angina pectoris; Z95.1 Presence of aortocoronary bypass graft
CPT/HCPCS: 36415; 49507; 64784; 80048; 83735; 83880; 84100; 85027; 88302; 93005; 93010; A9270; C1781; J0690; J1885; J2250; J2704; J3010; J3490; J7121

== ENCOUNTER 2022-01-08 08:57 | Day surgery (SDC) | payer MEDICARE, OTHER ==
[2022-01-08] MEDS ORDERED: Sodium Chloride 0.9% 10 ML Syringe FLUSH PRN (09:30)
[2022-01-08 10:00] VITALS: BP 132/91; PULSE 56
== END 2022-01-08 10:20 | disposition home or self-care (01) ==
LOC: JP.SDS 08:57
PROVIDERS: ATTEND Ophthalmology
DX: H25.12 Age-related nuclear cataract, left eye (principal); I25.10 Atherosclerotic heart disease of native coronary artery without angina pectoris; F17.200 Nicotine dependence, unspecified, uncomplicated
CPT/HCPCS: 66984; J3490; V2632

== ENCOUNTER 2022-01-22 07:54 | Day surgery (SDC) | payer MEDICARE, OTHER ==
[2022-01-22] MEDS: Sodium Chloride 0.9% 10 ML Syringe FLUSH PRN (08:50)
[2022-01-22 09:55] VITALS: BP 128/63; PULSE 56
== END 2022-01-22 09:50 | disposition home or self-care (01) ==
LOC: JP.SDS 07:54
PROVIDERS: ATTEND Ophthalmology
DX: H25.11 Age-related nuclear cataract, right eye (principal); I25.10 Atherosclerotic heart disease of native coronary artery without angina pectoris; F17.200 Nicotine dependence, unspecified, uncomplicated
CPT/HCPCS: J3490

== ENCOUNTER 2022-06-19 18:27 | Emergency (ER) | payer MEDICARE, OTHER ==
[2022-06-19 18:54] VITALS: BP 139/76; PULSE 61
[2022-06-19] MEDS ORDERED: Lidocaine 2% Jelly 10 ML Urojet MUCMEM ONE (19:20)
== END 2022-06-19 20:26 | disposition home or self-care (01) ==
LOC: JP.ED 18:27
DX: R33.9 Retention of urine, unspecified (principal); Z88.8 Allergy status to other drugs, medicaments and biological substances; Z88.1 Allergy status to other antibiotic agents; Z88.6 Allergy status to analgesic agent; Z79.82 Long term (current) use of aspirin; Z79.899 Other long term (current) drug therapy
CPT/HCPCS: 51702; 81001; 99284

== ENCOUNTER 2022-06-20 14:41 | Emergency (ER) | payer MEDICARE, OTHER ==
[2022-06-20 15:27] VITALS: BP 133/83; PULSE 75
== END 2022-06-20 15:43 | disposition home or self-care (01) ==
LOC: JP.ED 14:41
DX: T83.9XXA Unspecified complication of genitourinary prosthetic device, implant and graft, initial encounter (principal); J45.909 Unspecified asthma, uncomplicated; Z88.8 Allergy status to other drugs, medicaments and biological substances; Z88.1 Allergy status to other antibiotic agents; Z88.6 Allergy status to analgesic agent; Z79.82 Long term (current) use of aspirin; Z79.899 Other long term (current) drug therapy
CPT/HCPCS: 99283

== ENCOUNTER 2023-06-17 19:23 | Emergency (ER) | payer MEDICARE, OTHER ==
[2023-06-17] MEDS ORDERED: Sodium Chloride 0.9% 10 ML Syringe FLUSH PRN (20:29)
[2023-06-17] MEDS ORDERED: Lactated Ringers 1,000 ML IV ONE (20:29)
[2023-06-17 21:13] LABS: LYME AB IgG Negative (Negative); LYME AB IgM Negative (Negative)
[2023-06-17 22:18] LABS: APPEARANCE,URINE SLIGHTLY CLOUDY (CLEAR); BILIRUBIN,URINE SMALL (NEGATIVE); COLOR,URINE BROWN (YELLOW); GLUCOSE,URINE NEGATIVE (NEGATIVE); KETONES,URINE TRACE mg/dL (NEGATIVE); LEUKOCYTE ESTERASE,URINE NEGATIVE (NEGATIVE); NITRITE,URINE NEGATIVE (NEGATIVE); OCCULT BLOOD,URINE SMALL (NEGATIVE); PH,URINE 5.5 (5.0-8.0); PROTEIN,URINE 100 mg/dL (NEGATIVE)
[2023-06-17 22:22] LABS: CORONAVIRUS COVID-19 NAA NEGATIVE (NEGATIVE); INFLUENZA A NAA NEGATIVE (NEGATIVE); INFLUENZA B NAA NEGATIVE (NEGATIVE); RESPIRATORY SYNCYTIAL VIR NAA NEGATIVE (NEGATIVE)
[2023-06-17 22:22] LABS: AMORPHOUS SEDIMENT,URINE FEW; BACTERIA,URINE MODERATE; EPITHELIAL CELLS,URINE FEW; MUCUS,URINE MODERATE; WBC,URINE 0-5 (0-5)
[2023-06-17] MEDS ORDERED: Sodium Chloride 0.9% 75 ML IV ONE (22:45)
[2023-06-17] MEDS ORDERED: Sodium Chloride 0.9% 10 ML Syringe FLUSH ONE (22:45)
[2023-06-17] MEDS ORDERED: Iopamidol 755 Mg/ML 100 ML Bottle IV ONE (22:45)
[2023-06-18] MEDS ORDERED: Apixaban 5 MG Tab PO ONE
[2023-06-18 00:44] VITALS: BP 120/72; PULSE 65
== END 2023-06-18 00:44 | disposition home or self-care (01) ==
LOC: JP.ED 19:23
DX: I26.94 Multiple subsegmental thrombotic pulmonary emboli without acute cor pulmonale (principal); J45.909 Unspecified asthma, uncomplicated; Z79.899 Other long term (current) drug therapy; Z88.1 Allergy status to other antibiotic agents; Z88.6 Allergy status to analgesic agent; Z88.8 Allergy status to other drugs, medicaments and biological substances; Z20.822 Contact with and (suspected) exposure to COVID-19
CPT/HCPCS: 0241U; 36415; 70450; 71275; 81001; 84145; 84550; 85379; 86618; 96360; 99285-25; A9270-GY; J3490; J7120; Q9967

== ENCOUNTER 2024-11-24 20:04 | Emergency (ER) | payer MEDICARE, OTHER ==
[2024-11-24 21:02] VITALS: BP 127/71; PULSE 63
[2024-11-24] MEDS: Sodium Phosphate,Monobasic/Sodium Phosphate,Dibasic Enema 133 ML Bottle RECTAL ONE (21:27)
[2024-11-24] MEDS: Magnesium Citrate Solution 296 ML Bottle PO ONE (21:27)
== END 2024-11-24 22:24 | disposition home or self-care (01) ==
LOC: JP.ED 20:04
DX: K59.00 Constipation, unspecified (principal); J45.909 Unspecified asthma, uncomplicated; F17.210 Nicotine dependence, cigarettes, uncomplicated; Z95.2 Presence of prosthetic heart valve; Z88.8 Allergy status to other drugs, medicaments and biological substances; Z91.048 Other nonmedicinal substance allergy status; Z79.82 Long term (current) use of aspirin; Z79.899 Other long term (current) drug therapy
CPT/HCPCS: 99283; A9270

== ENCOUNTER 2025-01-26 19:51 | Emergency (ER) | payer MEDICARE, OTHER ==
[2025-01-26 20:08] VITALS: BP 139/88; PULSE 70
== END 2025-01-26 20:54 | disposition home or self-care (01) ==
LOC: JP.ED 19:51
DX: K59.00 Constipation, unspecified (principal); J45.909 Unspecified asthma, uncomplicated; Z86.16 Personal history of COVID-19; F17.200 Nicotine dependence, unspecified, uncomplicated; Z79.82 Long term (current) use of aspirin; Z79.899 Other long term (current) drug therapy; Z88.8 Allergy status to other drugs, medicaments and biological substances; Z91.048 Other nonmedicinal substance allergy status; Z88.1 Allergy status to other antibiotic agents
CPT/HCPCS: 99283

== ENCOUNTER 2025-01-31 09:45 | Emergency (ER) | payer MEDICARE, OTHER ==
[2025-01-31 11:11] VITALS: BP 126/78; PULSE 54
== END 2025-01-31 13:18 | disposition home or self-care (01) ==
LOC: JP.ED 09:45
DX: I50.9 Heart failure, unspecified (principal); Z88.8 Allergy status to other drugs, medicaments and biological substances; Z79.82 Long term (current) use of aspirin; Z79.899 Other long term (current) drug therapy; Z86.16 Personal history of COVID-19
CPT/HCPCS: 36415; 84484; 99285

== ENCOUNTER 2025-02-04 14:20 | Emergency (ER) | payer MEDICARE, OTHER ==
[2025-02-04 15:34] LABS: BASOPHILS PERCENT AUTO 0.3 % (0.1-1.3); EOSINOPHILS ABSOLUTE AUTO 0.13 K/uL (0.00-0.40); EOSINOPHILS PERCENT AUTO 2.2 % (0.0-5.4); HEMOGLOBIN 13.4 g/dL (12.9-16.9); IMMATURE GRAN PERCENT AUTO 0.2 % (0.0-0.7); LYMPHOCYTES PERCENT AUTO 13.4 % (11.4-47.7); MEAN CORPUSCULAR HEMOGLOBIN 30.9 pg (31.6-35.5); MEAN CORPUSCULAR HGB CONC 33.5 g/dL (31.6-35.5); MEAN CORPUSCULAR VOLUME 92.2 fL (81.4-99.0); MONOCYTES ABSOLUTE AUTO 0.42 K/uL (0.20-0.90); NEUTROPHILS ABSOLUTE AUTO 4.61 K/uL (1.0-7.6); NEUTROPHILS PERCENT AUTO 76.9 % (40.0-78.1); PLATELET COUNT,PLT 122 K/uL (130-375); RED BLOOD CELL COUNT 4.34 M/uL (4.14-5.76)
[2025-02-04] MEDS: Bisacodyl 10 MG Supp RECTAL ONE ×2 (15:34)
[2025-02-04 15:35] LABS: BASOPHILS ABSOLUTE AUTO 0.02 K/uL (0.00-0.10); IMMATURE GRAN ABSOLUTE AUTO 0.01 K/uL (0.00-0.23)
[2025-02-04 15:46] VITALS: PULSE 57
[2025-02-04 15:53] LABS: A/G RATIO 1.1 (1.2-2.2); ALANINE AMINOTRANSFERASE,ALT 24 U/L (12-78); ALBUMIN 3.5 g/dL (3.4-5.0); ALKALINE PHOSPHATASE 96 U/L (46-116); ASPARTATE AMNIOTRANSFERASE,AST 20 U/L (15-37); BILIRUBIN TOTAL 0.6 mg/dL (0.2-1.0); BLOOD UREA NITROGEN,BUN 29 mg/dL (7-18); CARBON DIOXIDE,CO2 29 mmol/L (21-32); CHLORIDE,CL 109 mmol/L (100-108); CREATININE 1.2 mg/dL (0.8-1.3); ESTIMATED GFR 61 mL/min (>60); GLUCOSE RANDOM 109 mg/dL (74-106); POTASSIUM,K 4.1 mmol/L (3.6-5.2); PROTEIN TOTAL,TP 6.7 g/dL (6.4-8.2); SODIUM,NA 143 mmol/L (140-148)
[2025-02-04 15:54] LABS: ANION GAP 9.1 mmol/L (5.0-14.0); C-REACTIVE PROTEIN < 0.50 mg/dL (<0.50)
[2025-02-04 15:58] LABS: CALCIUM 9.1 mg/dL (8.5-10.1)
[2025-02-04] MEDS: Magnesium Citrate Solution 296 ML Bottle ONE (16:31)
[2025-02-04] MEDS: Na Phos,M-B/Na Phos,DI-B 60 ML, Mineral Oil 50 ML, Docusate Sodium 400 MG, Magnesium Ci... RECTAL ONE (16:31)
[2025-02-04 16:36] VITALS: BP 131/73
[2025-02-04] MEDS: Magnesium Citrate Solution 296 ML Bottle PO ONE (17:34)
== END 2025-02-04 17:39 | disposition home or self-care (01) ==
LOC: JP.ED 14:20
DX: K59.00 Constipation, unspecified (principal); J45.909 Unspecified asthma, uncomplicated; F17.200 Nicotine dependence, unspecified, uncomplicated; Z90.49 Acquired absence of other specified parts of digestive tract; Z95.2 Presence of prosthetic heart valve; Z88.8 Allergy status to other drugs, medicaments and biological substances; Z91.048 Other nonmedicinal substance allergy status; Z79.82 Long term (current) use of aspirin; Z79.899 Other long term (current) drug therapy
CPT/HCPCS: 36415; 80053; 85025; 86140; 99283; 99284; A9270-GY

== ENCOUNTER 2025-02-06 17:58 | Emergency (ER) | payer MEDICARE, OTHER ==
[2025-02-06 20:05] LABS: BASOPHILS ABSOLUTE AUTO 0.03 K/uL (0.00-0.10); BASOPHILS PERCENT AUTO 0.4 % (0.1-1.3); EOSINOPHILS ABSOLUTE AUTO 0.12 K/uL (0.00-0.40); EOSINOPHILS PERCENT AUTO 1.8 % (0.0-5.4); HEMATOCRIT 41.5 % (38.4-49.7); HEMOGLOBIN 13.9 g/dL (12.9-16.9); IMMATURE GRAN PERCENT AUTO 0.1 % (0.0-0.7); LYMPHOCYTES ABSOLUTE AUTO 0.96 K/uL (0.8-3.3); LYMPHOCYTES PERCENT AUTO 14.3 % (11.4-47.7); MEAN CORPUSCULAR HEMOGLOBIN 30.4 pg (31.6-35.5); MEAN CORPUSCULAR HGB CONC 33.5 g/dL (31.6-35.5); MEAN CORPUSCULAR VOLUME 90.8 fL (81.4-99.0); MONOCYTES ABSOLUTE AUTO 0.59 K/uL (0.20-0.90); MONOCYTES PERCENT AUTO 8.8 % (3.3-12.6); NEUTROPHILS ABSOLUTE AUTO 5.01 K/uL (1.0-7.6); NEUTROPHILS PERCENT AUTO 74.6 % (40.0-78.1); PLATELET COUNT,PLT 127 K/uL (130-375); RED BLOOD CELL COUNT 4.57 M/uL (4.14-5.76); WHITE BLOOD CELL COUNT,WBC 6.7 K/uL (3.2-11.0)
[2025-02-06 20:24] LABS: A/G RATIO 1.2 (1.2-2.2); ALANINE AMINOTRANSFERASE,ALT 27 U/L (12-78); ALBUMIN 3.8 g/dL (3.4-5.0); ALKALINE PHOSPHATASE 103 U/L (46-116); ANION GAP 9.2 mmol/L (5.0-14.0); ASPARTATE AMNIOTRANSFERASE,AST 22 U/L (15-37); BILIRUBIN TOTAL 0.8 mg/dL (0.2-1.0); BLOOD UREA NITROGEN,BUN 24 mg/dL (7-18); CALCIUM 9.1 mg/dL (8.5-10.1); CARBON DIOXIDE,CO2 26 mmol/L (21-32); CHLORIDE,CL 107 mmol/L (100-108); CREATININE 1.3 mg/dL (0.8-1.3); EST CRCL DRUG DOSING (CG) 33.53 mL/min; ESTIMATED GFR 56 mL/min (>60); GLUCOSE RANDOM 87 mg/dL (74-106); POTASSIUM,K 4.6 mmol/L (3.6-5.2); PROTEIN TOTAL,TP 6.9 g/dL (6.4-8.2); SODIUM,NA 142 mmol/L (140-148)
[2025-02-06] MEDS: Iopamidol 612 MG/ML 100 ML Bottle IV SCH (20:25)
[2025-02-06] MEDS: Sodium Chloride 0.9% 80 ML IV SCH (20:25)
[2025-02-06 20:29] LABS: IMMATURE GRAN ABSOLUTE AUTO 0.01 K/uL (0.00-0.23)
[2025-02-06] MEDS: Magnesium Citrate Solution 296 ML Bottle PO ONE (20:31)
[2025-02-06] MEDS: Sodium Chloride 0.9% 1,000 ML IV SCH (20:32)
[2025-02-06 21:12] LABS: APPEARANCE,URINE CLEAR (CLEAR); BILIRUBIN,URINE NEGATIVE (NEGATIVE); COLOR,URINE YELLOW (YELLOW); EPITHELIAL CELLS,URINE NOT SEEN; GLUCOSE,URINE NEGATIVE (NEGATIVE); KETONES,URINE NEGATIVE (NEGATIVE); LEUKOCYTE ESTERASE,URINE NEGATIVE (NEGATIVE); NITRITE,URINE NEGATIVE (NEGATIVE); OCCULT BLOOD,URINE NEGATIVE (NEGATIVE); PH,URINE 6.5 (5.0-8.0); PROTEIN,URINE NEGATIVE (NEGATIVE); RBC,URINE 0-5 (0-5); WBC,URINE 0-5 (0-5)
[2025-02-06 21:13] LABS: AMORPHOUS SEDIMENT,URINE NOT SEEN; BACTERIA,URINE RARE; MUCUS,URINE NOT SEEN
[2025-02-06] MEDS: Sodium Phosphate,Monobasic/Sodium Phosphate,Dibasic Enema 133 ML Bottle RECTAL ONE (21:18)
[2025-02-06 22:00] VITALS: BP 139/94; PULSE 64
== END 2025-02-06 22:19 | disposition home or self-care (01) ==
LOC: JP.ED 17:58
DX: K59.00 Constipation, unspecified (principal); J45.909 Unspecified asthma, uncomplicated; Z88.1 Allergy status to other antibiotic agents; Z88.8 Allergy status to other drugs, medicaments and biological substances; Z91.018 Allergy to other foods; Z79.82 Long term (current) use of aspirin; Z79.899 Other long term (current) drug therapy; Z95.5 Presence of coronary angioplasty implant and graft; Z90.49 Acquired absence of other specified parts of digestive tract; Z85.040 Personal history of malignant carcinoid tumor of rectum
CPT/HCPCS: 36415; 74177; 80053; 81001; 85025; 96360; 99284; A9270; J7030; Q9967

== ENCOUNTER 2025-02-15 18:47 | Emergency (ER) | payer MEDICARE, OTHER ==
[2025-02-15 21:31] VITALS: BP 136/86; PULSE 64
== END 2025-02-15 21:30 | disposition home or self-care (01) ==
LOC: JP.ED 18:47
DX: K59.00 Constipation, unspecified (principal); Z88.8 Allergy status to other drugs, medicaments and biological substances; Z88.1 Allergy status to other antibiotic agents; Z88.6 Allergy status to analgesic agent; Z95.5 Presence of coronary angioplasty implant and graft; Z90.49 Acquired absence of other specified parts of digestive tract
CPT/HCPCS: 99283

== ENCOUNTER 2025-02-20 15:09 | Emergency (ER) | payer MEDICARE, OTHER ==
[2025-02-20 17:46] VITALS: BP 143/89; PULSE 69
== END 2025-02-20 19:14 | disposition home or self-care (01) ==
LOC: JP.ED 15:09
DX: K59.04 Chronic idiopathic constipation (principal); Z88.1 Allergy status to other antibiotic agents; Z88.8 Allergy status to other drugs, medicaments and biological substances; Z91.018 Allergy to other foods; Z79.82 Long term (current) use of aspirin; Z79.899 Other long term (current) drug therapy; Z90.49 Acquired absence of other specified parts of digestive tract
CPT/HCPCS: 99283

== ENCOUNTER 2025-02-24 11:22 | Emergency (ER) | payer MEDICARE, OTHER ==
[2025-02-24 11:58] VITALS: BP 129/16; PULSE 66
== END 2025-02-24 13:42 | disposition left against medical advice (07) ==
LOC: JP.ED 11:22
DX: Z53.21 Procedure and treatment not carried out due to patient leaving prior to being seen by health care provider (principal)

== ENCOUNTER 2025-04-19 18:13 | Emergency (ER) | payer MEDICARE, OTHER ==
[2025-04-19] MEDS: Na Phos,M-B/Na Phos,DI-B 60 ML, Mineral Oil 50 ML, Docusate Sodium 400 MG, Magnesium Ci... RECTAL ONE (20:14)
[2025-04-19 20:50] VITALS: BP 153/88; PULSE 67
== END 2025-04-19 20:47 | disposition home or self-care (01) ==
LOC: JP.ED 18:13
DX: K59.00 Constipation, unspecified (principal); J45.909 Unspecified asthma, uncomplicated; Z90.49 Acquired absence of other specified parts of digestive tract; Z79.82 Long term (current) use of aspirin; Z79.899 Other long term (current) drug therapy; Z88.8 Allergy status to other drugs, medicaments and biological substances; Z88.1 Allergy status to other antibiotic agents; Z91.048 Other nonmedicinal substance allergy status
CPT/HCPCS: 99283

== ENCOUNTER 2025-05-12 22:52 | Emergency (ER) | payer MEDICARE, OTHER ==
[2025-05-13] MEDS: Na Phos,M-B/Na Phos,DI-B 60 ML, Mineral Oil 50 ML, Docusate Sodium 400 MG, Magnesium Ci... RECTAL ONE (01:26)
[2025-05-13 02:26] VITALS: BP 151/90; PULSE 55
== END 2025-05-13 02:08 | disposition home or self-care (01) ==
LOC: JP.ED 22:52
DX: K59.00 Constipation, unspecified (principal); Z88.1 Allergy status to other antibiotic agents; Z88.8 Allergy status to other drugs, medicaments and biological substances; Z91.018 Allergy to other foods; Z79.82 Long term (current) use of aspirin; Z79.899 Other long term (current) drug therapy; Z95.5 Presence of coronary angioplasty implant and graft; Z90.49 Acquired absence of other specified parts of digestive tract
CPT/HCPCS: 99283; A9270

== ENCOUNTER 2025-06-05 18:35 | Emergency (ER) | payer MEDICARE, OTHER ==
[2025-06-05 20:26] LABS: BASOPHILS ABSOLUTE AUTO 0.03 K/uL (0.00-0.10); BASOPHILS PERCENT AUTO 0.4 % (0.1-1.3); EOSINOPHILS ABSOLUTE AUTO 0.18 K/uL (0.00-0.40); EOSINOPHILS PERCENT AUTO 2.4 % (0.0-5.4); IMMATURE GRAN ABSOLUTE AUTO 0.03 K/uL (0.00-0.23); IMMATURE GRAN PERCENT AUTO 0.4 % (0.0-0.7); LYMPHOCYTES ABSOLUTE AUTO 0.89 K/uL (0.8-3.3); LYMPHOCYTES PERCENT AUTO 11.9 % (11.4-47.7); MONOCYTES ABSOLUTE AUTO 0.66 K/uL (0.20-0.90); MONOCYTES PERCENT AUTO 8.8 % (3.3-12.6); NEUTROPHILS ABSOLUTE AUTO 5.67 K/uL (1.0-7.6); NEUTROPHILS PERCENT AUTO 76.1 % (40.0-78.1); PLATELET COUNT,PLT 151 K/uL (130-375); RED BLOOD CELL COUNT 4.52 M/uL (4.14-5.76); WHITE BLOOD CELL COUNT,WBC 7.5 K/uL (3.2-11.0)
[2025-06-05 20:49] LABS: A/G RATIO 1.3 (1.2-2.2); ALANINE AMINOTRANSFERASE,ALT 35 U/L (12-78); ASPARTATE AMNIOTRANSFERASE,AST 33 U/L (15-37); BILIRUBIN TOTAL 0.7 mg/dL (0.2-1.0); BLOOD UREA NITROGEN,BUN 23 mg/dL (7-18); CARBON DIOXIDE,CO2 29 mmol/L (21-32); CHLORIDE,CL 107 mmol/L (100-108); CREATININE 1.2 mg/dL (0.8-1.3); EST CRCL DRUG DOSING (CG) 50.56 mL/min; ESTIMATED GFR 61 mL/min (>60); GLUCOSE RANDOM 97 mg/dL (74-106); POTASSIUM,K 4.5 mmol/L (3.6-5.2); PROTEIN TOTAL,TP 6.8 g/dL (6.4-8.2); SODIUM,NA 143 mmol/L (140-148)
[2025-06-05 20:52] LABS: TROPONIN I HIGH SENSITIVITY 84.6 pg/mL (<=60.3)
[2025-06-05 20:59] LABS: LACTIC ACID 0.9 mmol/L (0.4-2.0)
[2025-06-05 21:20] LABS: APPEARANCE,URINE CLEAR (CLEAR); GLUCOSE,URINE NEGATIVE (NEGATIVE); OCCULT BLOOD,URINE TRACE-INTACT (NEGATIVE)
[2025-06-05 21:30] LABS: SQUAMOUS EPITHELIAL CELLS,UR RARE /HPF; UROTHELIAL CELLS,URINE NOT SEEN /HPF
[2025-06-05 22:09] VITALS: BP 145/96; PULSE 66
[2025-06-05] MEDS: Iopamidol 755 Mg/ML 100 ML Bottle IV ONE (23:09)
[2025-06-05] MEDS: Sodium Chloride 0.9% 10 ML Syringe FLUSH ONE (23:09)
[2025-06-06] MEDS: diphenhydrAMINE 50 MG/ML SDV IM ONE (03:04)
[2025-06-06] MEDS: diphenhydrAMINE 50 MG/ML SDV IVPUSH ONE (03:06)
== END 2025-06-06 03:26 | disposition other institution (70) ==
LOC: JP.ED 18:35
DX: I21.4 Non-ST elevation (NSTEMI) myocardial infarction (principal); I50.9 Heart failure, unspecified; Z79.899 Other long term (current) drug therapy; Z90.49 Acquired absence of other specified parts of digestive tract; Z95.5 Presence of coronary angioplasty implant and graft; Z88.8 Allergy status to other drugs, medicaments and biological substances; Z88.1 Allergy status to other antibiotic agents; Z91.048 Other nonmedicinal substance allergy status
CPT/HCPCS: 36415; 71045; 71275; 80053; 81001; 83605; 83880; 84484; 85025; 85379; 93005; 96372; 96374; 99285; A9270; J1200; J2359; Q9967; 93010